=== PATIENT | female | born 1965 | race Caucasian/White ===

== ENCOUNTER 2019-01-17 14:34 | Inpatient (IN) | payer MEDICARE ==
[~2019-01-17] VITALS: Ht 167.6 cm; Wt 68.0 kg
[2019-01-17 15:33] LABS: BASOPHILS ABSOLUTE AUTO 0.04 K/mm3 (0.00-0.23); BASOPHILS PERCENT AUTO 0 % (0-2); EOSINOPHILS ABSOLUTE AUTO 0.02 K/mm3 (0.00-0.68); EOSINOPHILS PERCENT AUTO 0 % (0-6); Hematocrit 48.1 % (33.0-51.0); Hemoglobin 16.2 g/dL (11.5-16.0); IMMATURE GRAN ABSOLUTE AUTO 0.07 K/mm3 (0.00-0.10); IMMATURE GRAN PERCENT AUTO 1 % (0-1); LYMPHOCYTES ABSOLUTE AUTO 2.67 K/mm3 (0.84-5.20); LYMPHOCYTES PERCENT AUTO 19 % (21-46); MONOCYTES ABSOLUTE AUTO 0.61 K/mm3 (0.16-1.47); MONOCYTES PERCENT AUTO 4 % (4-13); Mean Corpuscular HGB 31.4 pg (26.0-34.0); Mean Corpuscular HGB Conc 33.7 g/dL (31.5-36.5); Mean Corpuscular Volume 93 fL (80-100); Mean Platelet Volume 9.4 fL (9.1-12.4); NEUTROPHILS ABSOLUTE AUTO 11.04 K/mm3 (1.96-9.15); NEUTROPHILS PERCENT AUTO 76 % (41-73); Platelet Count 332 K/mm3 (150-400); RDW Coefficient Variation 14.3 % (11.7-14.2); RDW Standard Deviation 49.7 fL (35.1-46.3); Red Blood Cell Count 5.16 M/mm3 (3.80-5.20); White Blood Cell Count 14.45 K/mm3 (4.00-11.30)
[2019-01-17 15:55] LABS: Alanine Aminotransfer (ALT/SGP 26 U/L (12-78); Albumin, Blood 4.3 g/dL (3.4-5.0); Albumin/Globulin Ratio 1.2 (0.8-1.8); Alk Phos 69 U/L (50-136); Anion Gap 8 mmol/L (6-16); Aspartate Aminotrans (AST/SGOT 16 U/L (12-37); Bilirubin, Total 1.4 mg/dL (0.1-1.0); Blood Urea Nitrogen 15 mg/dL (8-24); Bun/Creatinine Ratio 25.9 (12.0-20.0); CO2, Blood 24 mmol/L (21-32); Calcium, Blood 9.3 mg/dL (8.5-10.1); Chloride, Blood 103 mmol/L (98-108); Creatinine, Blood 0.58 mg/dL (0.40-1.00); Ethanol (Alcohol), Blood, Med <3 mg/dL; Globulin, Blood 3.7 g/dL (2.2-4.0); Glomerular Filtration Rate >60 (60-); Glucose, Blood 148 mg/dL (70-99); Potassium, Blood 3.4 mmol/L (3.5-5.5); Sodium, Blood 135 mmol/L (136-145)
[2019-01-17] MEDS ORDERED: Clonazepam0.5 MG PO (19:22)
[2019-01-17] MEDS ORDERED: Prinivil5 MG PO (19:24)
[2019-01-17] MEDS ORDERED: METFORMIN HCL500 MG PO (19:25)
[2019-01-17] MEDS ORDERED: ROSU5 PO (19:25)
[2019-01-17] MEDS ORDERED: Ventolin/Prove6.7 GM INH (19:26)
[2019-01-17] MEDS ORDERED: OMEPRAZOLE20 MG PO (19:44)
[2019-01-17] MEDS ORDERED: SPIRIVA RESPIMAT4 G1 INH (19:59)
[2019-01-17 21:11] LABS: Source, Urine Catheter
[2019-01-17 21:14] LABS: Bilirubin, Urine Neg (Neg); Blood, Urine 2+ (Neg); Color, Urine Yellow (P-Yellow); Glucose Qualitative, Urine Neg (Neg); Ketones, Urine 3+ (Neg); Leukocyte Esterase, Urine 1+ (Neg); Nitrite, Urine Pos (Neg); Protein, Urine 1+ (Neg); Urobilinogen, Urine NORM (Normal)
[2019-01-17 21:21] LABS: Appearance, Urine Hazy (Clear)
[2019-01-17 21:22] LABS: Bacteria Many /hpf; Hyaline Casts 0-2 /lpf (0-2); Red Blood Cells, Urine 0-2 /hpf (0-2); Squamous Epithelial Cells Rare /hpf (Few)
[2019-01-17 21:26] LABS: U Amphetamine Screen Not Detected; U Barbituate Screen Not Detected; U Benzodiazapine Screen Not Detected; U Buprenorphine Screen Not Detected; U Cannabinoids Screen DETECTED; U Cocaine Screen Not Detected; U Methadone Screen Not Detected; U Methamphetamine Screen Not Detected; U Opiates Screen Not Detected; U Oxycodone Screen Not Detected; U Phencyclidine Screen Not Detected; U Propoxyphene Screen Not Detected
[2019-01-18 05:33] LABS: BASOPHILS ABSOLUTE AUTO 0.07 K/mm3 (0.00-0.23); BASOPHILS PERCENT AUTO 1 % (0-2); EOSINOPHILS ABSOLUTE AUTO 0.09 K/mm3 (0.00-0.68); EOSINOPHILS PERCENT AUTO 1 % (0-6); Hematocrit 39.8 % (33.0-51.0); Hemoglobin 13.4 g/dL (11.5-16.0); IMMATURE GRAN ABSOLUTE AUTO 0.04 K/mm3 (0.00-0.10); IMMATURE GRAN PERCENT AUTO 0 % (0-1); LYMPHOCYTES ABSOLUTE AUTO 4.71 K/mm3 (0.84-5.20); LYMPHOCYTES PERCENT AUTO 40 % (21-46); MONOCYTES ABSOLUTE AUTO 0.95 K/mm3 (0.16-1.47); MONOCYTES PERCENT AUTO 8 % (4-13); Mean Corpuscular HGB 31.7 pg (26.0-34.0); Mean Corpuscular HGB Conc 33.7 g/dL (31.5-36.5); Mean Corpuscular Volume 94 fL (80-100); Mean Platelet Volume 9.5 fL (9.1-12.4); NEUTROPHILS ABSOLUTE AUTO 6.01 K/mm3 (1.96-9.15); NEUTROPHILS PERCENT AUTO 51 % (41-73); Platelet Count 255 K/mm3 (150-400); RDW Coefficient Variation 14.3 % (11.7-14.2); RDW Standard Deviation 49.1 fL (35.1-46.3); Red Blood Cell Count 4.23 M/mm3 (3.80-5.20); White Blood Cell Count 11.87 K/mm3 (4.00-11.30)
[2019-01-18 05:49] LABS: International Normalized Ratio 1.07; Prothrombin Time Results 11.3 Sec (9.7-11.5)
[2019-01-18 06:07] LABS: Magnesium, Blood 1.6 mg/dL (1.6-2.4)
[2019-01-18 06:08] LABS: Alanine Aminotransfer (ALT/SGP 20 U/L (12-78); Albumin, Blood 3.5 g/dL (3.4-5.0); Albumin/Globulin Ratio 1.1 (0.8-1.8); Alk Phos 57 U/L (50-136); Anion Gap 7 mmol/L (6-16); Aspartate Aminotrans (AST/SGOT 15 U/L (12-37); Bilirubin, Total 1.4 mg/dL (0.1-1.0); Blood Urea Nitrogen 11 mg/dL (8-24); Bun/Creatinine Ratio 17.9 (12.0-20.0); CO2, Blood 23 mmol/L (21-32); Calcium, Blood 8.2 mg/dL (8.5-10.1); Chloride, Blood 109 mmol/L (98-108); Creatinine, Blood 0.62 mg/dL (0.40-1.00); Globulin, Blood 3.1 g/dL (2.2-4.0); Glomerular Filtration Rate >60 (60-); Glucose, Blood 97 mg/dL (70-99); Sodium, Blood 139 mmol/L (136-145); Total Protein, Blood 6.6 g/dL (6.4-8.2)
--- NOTE | 2019-01-18 15:38 | NUR ---
RECIEVED TELEPHONE REPORT FROM ED RN SIDDHARTHA. WAITITNG FOR PT TO ARRIVE ON MEDICAL FLOOR. PER REPORT PT IS A 1P SBA WITH ANBULATION, VERY CONFUSED HIGH FALL RISK.
--- NOTE | 2019-01-18 18:31 | NUR ---
SHIFT SUMMARY- PT ADMITTED THROUGH THE ED. PT VERBALLY CONFIRMED HER MEDICATIONS HOWEVER [facility] WAS CALLED AND REQUESTED THEY SEND A COPY OF PT ACTIVE MEDICATION LIST. PT FAMILY STATED THE PT MAY HAVE BEEN TAKING HER KLONOPIN TO OFTEN OR AT TOO HIGH OF A DOSE, HER BOTTLE WAS EMPTY WHEN SHE ARRIVED ON MEDICAL FLOOR. ALL MEDICATIONS WERE PLACED IN A BAG IN THE LOCKED DRAWER. PT FAMILY LEFT AND STATED THAT THE PT HAS BEEN UNDER ALOT OF EMOTIONAL STRESS. THEY PLAN TO CHANGE HER ENVIRONMENT AND TAKE HER TO LIVE WITH THEM IN THEIR HOME. PT IS ALERT BUT NOT ORIENTED TO PLACE OR EVENT OR TIME. PT VERY FORGETFUL AND FREQUENTLY REPEATS HERSELF. PT HAS CHAIR AND BED ALARMS SET AND CAMERAS ARE ON FOR PT SAFETY.
--- NOTE | 2019-01-18 20:06 | NUR ---
1925: ASSUMED CARE OF PATIENT. PATIENT ANXIOUS, IMPULSIVE, GETTING UP REPEATEDLY, SETTING OFF HER ALARM. PATIENT IS UNABLE TO SAY WHERE SHE IS LOCATED, SAYS "i DONT KNOW MICHELLE?" WHEN ASKED IF SHE KNOWS WHERE SHE IS. DOESNT KNOW THE DAY, DATE AND BECOMES IRRIATED WHEN ASKED TO ADD NUMBERS. PER DAY NURSE ITZEL IS ONLY A 6 LAST ASSESSMENT. PT DENIES PAIN, SOB, HEADACHE, NAUSSEA. RATES HER ANXIETY AT A 5/10. PT ASKED TO REMAIN EITHR IN BED OR CHAIR AND TO CALL FOR SBA BEFORE GETTING UP DUE TO HER RECENT FALL AT HOME. SHE AGREES TO DO SO. BED LOW AND ALARMED. CALL CAZARES WITHIN REACH.
[2019-01-18 23:53] LABS: U Amphetamine Screen Not Detected; U Barbituate Screen Not Detected; U Benzodiazapine Screen DETECTED; U Buprenorphine Screen Not Detected; U Cannabinoids Screen DETECTED; U Cocaine Screen Not Detected; U Methadone Screen Not Detected; U Methamphetamine Screen Not Detected; U Opiates Screen Not Detected; U Oxycodone Screen Not Detected; U Phencyclidine Screen Not Detected; U Propoxyphene Screen Not Detected
[2019-01-19 05:08] LABS: Hematocrit 41.1 % (33.0-51.0); Hemoglobin 13.7 g/dL (11.5-16.0); Mean Corpuscular HGB 31.1 pg (26.0-34.0); Mean Corpuscular HGB Conc 33.3 g/dL (31.5-36.5); Mean Corpuscular Volume 93 fL (80-100); Mean Platelet Volume 9.6 fL (9.1-12.4); Platelet Count 269 K/mm3 (150-400); RDW Coefficient Variation 14.3 % (11.7-14.2); RDW Standard Deviation 49.1 fL (35.1-46.3); Red Blood Cell Count 4.41 M/mm3 (3.80-5.20); White Blood Cell Count 10.93 K/mm3 (4.00-11.30)
[2019-01-19 05:21] LABS: Anion Gap 6 mmol/L (6-16); Blood Urea Nitrogen 14 mg/dL (8-24); Bun/Creatinine Ratio 19.7 (12.0-20.0); CO2, Blood 27 mmol/L (21-32); Calcium, Blood 8.3 mg/dL (8.5-10.1); Chloride, Blood 106 mmol/L (98-108); Creatinine, Blood 0.71 mg/dL (0.40-1.00); Glomerular Filtration Rate >60 (60-); Glucose, Blood 104 mg/dL (70-99); Potassium, Blood 3.9 mmol/L (3.5-5.5); Sodium, Blood 139 mmol/L (136-145)
[2019-01-19 05:44] LABS: BASOPHILS ABSOLUTE MAN 0.32 K/mm3 (0.00-0.23); BASOPHILS PERCENT MAN 3 % (0-2); EOSINOPHILS PERCENT MAN 1 % (0-6); LYMPHOCYTES % ATYPICAL MANUAL 9 % (0-0); LYMPHOCYTES ABSOLUTE MAN 5.46 K/mm3 (0.84-5.20); LYMPHOCYTES PERCENT MAN 41 % (21-46); MONOCYTES ABSOLUTE MAN 0.87 K/mm3 (0.16-1.47); MONOCYTES PERCENT MAN 8 % (4-13); NEUTROPHILS ABSOLUTE MAN 4.15 K/mm3 (1.96-9.15); SEG NEUTROPHILS PERCENT MAN 38 % (41-73); TOTAL CELLS COUNTED 100
--- NOTE | 2019-01-19 16:02 | NUR ---
PATIENT HAS BEEN TALKATIVE THIS SHIFT. SHE IS STABLE ON HER FEET AND ABLE TO AMBULATE TO THE RESTROOM AND AROUND THE ROOM. SHE IS PLEASANT AND COOPERATIVE WITH CARES . SHE IS ALERT AND ORIENTED X4 AND ABLE TO EXPRESS HER NEEDS. CALL LIGHT WITHIN REACH.
[2019-01-19] MEDS ORDERED: BRINTELLIX10 MG PO (17:17)
--- NOTE | 2019-01-20 04:38 | NUR ---
ALERT AND ORIENTED. CWAS 2 OR LESS THIS SHIFT. NOTED SOMEWHAT ANXIOUS AT SHIFT COMMENCE BUT AFTER NICOTINE PATCH ORDERED AND APPLIED, SEEMED LESS ANXIOUS AND SLEPT MOST OF THE SHIFT UNTIL NOW, UP AND TALKING TO STAFF. VSS. MED TELE SINUS. CALL LIGHT IN REACH. WILL CONTINUE TO MONITOR.
[2019-01-20 04:39] LABS: BASOPHILS ABSOLUTE AUTO 0.08 K/mm3 (0.00-0.23); BASOPHILS PERCENT AUTO 1 % (0-2); EOSINOPHILS ABSOLUTE AUTO 0.23 K/mm3 (0.00-0.68); EOSINOPHILS PERCENT AUTO 2 % (0-6); Hemoglobin 14.2 g/dL (11.5-16.0); IMMATURE GRAN ABSOLUTE AUTO 0.03 K/mm3 (0.00-0.10); IMMATURE GRAN PERCENT AUTO 0 % (0-1); LYMPHOCYTES ABSOLUTE AUTO 4.79 K/mm3 (0.84-5.20); LYMPHOCYTES PERCENT AUTO 42 % (21-46); MONOCYTES ABSOLUTE AUTO 0.96 K/mm3 (0.16-1.47); MONOCYTES PERCENT AUTO 8 % (4-13); Mean Corpuscular HGB 31.6 pg (26.0-34.0); Mean Corpuscular Volume 96 fL (80-100); Mean Platelet Volume 9.6 fL (9.1-12.4); NEUTROPHILS ABSOLUTE AUTO 5.38 K/mm3 (1.96-9.15); NEUTROPHILS PERCENT AUTO 47 % (41-73); Platelet Count 265 K/mm3 (150-400); RDW Coefficient Variation 14.1 % (11.7-14.2); RDW Standard Deviation 49.8 fL (35.1-46.3); White Blood Cell Count 11.47 K/mm3 (4.00-11.30)
[2019-01-20 04:59] LABS: Albumin, Blood 3.6 g/dL (3.4-5.0); Anion Gap 4 mmol/L (6-16); Blood Urea Nitrogen 14 mg/dL (8-24); Bun/Creatinine Ratio 20.2 (12.0-20.0); CO2, Blood 28 mmol/L (21-32); Calcium, Blood 8.5 mg/dL (8.5-10.1); Chloride, Blood 108 mmol/L (98-108); Creatinine, Blood 0.69 mg/dL (0.40-1.00); Glomerular Filtration Rate >60 (60-); Glucose, Blood 93 mg/dL (70-99); Phosphorus, Blood 4.1 mg/dL (2.5-4.9); Potassium, Blood 3.9 mmol/L (3.5-5.5); Sodium, Blood 140 mmol/L (136-145)
[2019-01-20] MEDS ORDERED: Vsl#3 Capsule1 EACH PO (12:08)
[2019-01-20] MEDS ORDERED: Pyridium200 MG PO (12:09)
[2019-01-20] MEDS ORDERED: SERT25 PO (12:10)
[2019-01-20] MEDS ORDERED: Thiamine HCl100 MG PO (12:10)
[2019-01-20] MEDS ORDERED: CEFU500T30 PO (12:11)
[2019-01-20] MEDS ORDERED: THERA1 EACH PO (12:11)
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
== END 2019-01-20 17:05 | disposition home or self-care (01) | DRG 871 ==
LOC: ER 14:34 → EOR 14:35 → ER 14:35 → MEDS 14:35 → EOR 14:35 → MEDS 22:51 → ER 22:51 → EOR 01-18 15:44 → MEDS 01-18 15:44
PROVIDERS: Internal Medicine; Nurse Practitioner Acute Care; Physician Assistant; ADMIT Internal Medicine
DX: A41.51 Sepsis due to Escherichia coli [E. coli] (principal); G92 Toxic encephalopathy; N39.0 Urinary tract infection, site not specified; F10.239 Alcohol dependence with withdrawal, unspecified; E87.6 Hypokalemia; E11.9 Type 2 diabetes mellitus without complications; F41.1 Generalized anxiety disorder; F43.21 Adjustment disorder with depressed mood; I10 Essential (primary) hypertension; J44.9 Chronic obstructive pulmonary disease, unspecified; K21.9 Gastro-esophageal reflux disease without esophagitis; F17.210 Nicotine dependence, cigarettes, uncomplicated; Z88.2 Allergy status to sulfonamides
CPT/HCPCS: 36415; 70450; 71045; 80048; 80053; 80069; 81001; 82947; 83036; 83605; 83735; 84443; 85025; 85610; 87040; 87077; 87086; 87186; 93005; 93010; 94640; 94760; 96361; 96365; 96366; 96367; 96372-59; 96375; 96376; 97110; 97162; 97165; 97530; 99285-25; A9270; G0378; G0480; J0696; J1200; J1630; J1650; J2060; J3411; J3475; J7030; J7042; J7050; Q3014

== ENCOUNTER 2021-06-27 21:00 | Inpatient (IN) | payer MEDICARE ==
[~2021-06-27] VITALS: Ht 165.1 cm; Wt 74.2 kg
[~2021-06-27 21:00] MED LIST: BRINTELLIX10 MG PO; CEFU500T30 PO; Clonazepam0.5 MG PO; METFORMIN HCL500 MG PO; OMEPRAZOLE20 MG PO; Prinivil5 MG PO; Pyridium200 MG PO; ROSU5 PO; SERT25 PO; SPIRIVA RESPIMAT4 G1 INH; THERA1 EACH PO; Thiamine HCl100 MG PO; Ventolin/Prove6.7 GM INH; Vsl#3 Capsule1 EACH PO
[2021-06-27 21:47] LABS: BASOPHILS ABSOLUTE AUTO 0.05 K/mm3 (0.00-0.23); BASOPHILS PERCENT AUTO 0 % (0-2); EOSINOPHILS ABSOLUTE AUTO 0.01 K/mm3 (0.00-0.68); EOSINOPHILS PERCENT AUTO 0 % (0-6); Hematocrit 46.6 % (33.0-51.0); Hemoglobin 16.9 g/dL (11.5-16.0); IMMATURE GRAN ABSOLUTE AUTO 0.21 K/mm3 (0.00-0.10); IMMATURE GRAN PERCENT AUTO 1 % (0-1); LYMPHOCYTES ABSOLUTE AUTO 1.63 K/mm3 (0.84-5.20); LYMPHOCYTES PERCENT AUTO 8 % (21-46); MONOCYTES ABSOLUTE AUTO 1.02 K/mm3 (0.16-1.47); MONOCYTES PERCENT AUTO 5 % (4-13); Mean Corpuscular HGB 31.2 pg (26.0-34.0); Mean Corpuscular HGB Conc 36.3 g/dL (31.5-36.5); Mean Corpuscular Volume 86 fL (80-100); Mean Platelet Volume 9.4 fL (9.1-12.4); NEUTROPHILS PERCENT AUTO 87 % (41-73); Platelet Count 408 K/mm3 (150-400); RDW Coefficient Variation 12.6 % (11.7-14.2); RDW Standard Deviation 39.7 fL (35.1-46.3); Red Blood Cell Count 5.42 M/mm3 (3.80-5.20); White Blood Cell Count 21.52 K/mm3 (4.00-11.30)
[2021-06-27 22:06] LABS: Ethanol (Alcohol), Blood, Med <3 mg/dL
[2021-06-27 22:07] LABS: U Amphetamine Screen Not Detected; U Barbituate Screen Not Detected; U Benzodiazapine Screen Not Detected; U Buprenorphine Screen Not Detected; U Cannabinoids Screen Not Detected; U Cocaine Screen Not Detected; U Methadone Screen Not Detected; U Methamphetamine Screen Not Detected; U Opiates Screen Not Detected; U Oxycodone Screen Not Detected; U Phencyclidine Screen Not Detected; U Propoxyphene Screen Not Detected
[2021-06-27 22:10] LABS: Alanine Aminotransfer (ALT/SGP 49 U/L (12-78); Albumin, Blood 4.6 g/dL (3.4-5.0); Albumin/Globulin Ratio 1.2 (0.8-1.8); Alk Phos 64 U/L (50-136); Anion Gap 16 mmol/L (6-16); Aspartate Aminotrans (AST/SGOT 160 U/L (12-37); Bilirubin, Total 1.5 mg/dL (0.1-1.0); Blood Urea Nitrogen 9 mg/dL (8-24); Bun/Creatinine Ratio 16.5 (12.0-20.0); CO2, Blood 20 mmol/L (21-32); Calcium, Blood 9.8 mg/dL (8.5-10.1); Chloride, Blood 79 mmol/L (98-108); Creatinine, Blood 0.54 mg/dL (0.40-1.00); Globulin, Blood 3.9 g/dL (2.2-4.0); Glomerular Filtration Rate >60 (60-); Glucose, Blood 151 mg/dL (70-99); Sodium, Blood 115 mmol/L (136-145); Total Protein, Blood 8.5 g/dL (6.4-8.2)
[2021-06-27 22:15] LABS: Source, Urine Foley catheter
[2021-06-27 22:20] LABS: Bilirubin, Urine Neg (Neg); Blood, Urine 3+ (Neg); Glucose Qualitative, Urine Neg (Neg); Ketones, Urine 3+ (Neg); Leukocyte Esterase, Urine Neg (Neg); Nitrite, Urine Neg (Neg); Protein, Urine 2+ (Neg); Urobilinogen, Urine NORM (Normal)
[2021-06-27 22:30] LABS: International Normalized Ratio 1.09; Prothrombin Time Results 11.4 Sec (9.7-11.5)
[2021-06-27 22:30] LABS: Appearance, Urine Clear (Clear); Color, Urine Yellow (P-Yellow)
[2021-06-27 22:31] LABS: Amorphous Light (0-Heavy); Bacteria Few /hpf; Squamous Epithelial Cells Not Seen /hpf (Few); White Blood Cells, Urine Not Seen /hpf (0-5)
[2021-06-28 03:23] LABS: BASOPHILS ABSOLUTE AUTO 0.02 K/mm3 (0.00-0.23); BASOPHILS PERCENT AUTO 0 % (0-2); EOSINOPHILS ABSOLUTE AUTO 0.01 K/mm3 (0.00-0.68); EOSINOPHILS PERCENT AUTO 0 % (0-6); Hematocrit 37.6 % (33.0-51.0); Hemoglobin 13.6 g/dL (11.5-16.0); IMMATURE GRAN ABSOLUTE AUTO 0.05 K/mm3 (0.00-0.10); IMMATURE GRAN PERCENT AUTO 0 % (0-1); LYMPHOCYTES ABSOLUTE AUTO 3.31 K/mm3 (0.84-5.20); LYMPHOCYTES PERCENT AUTO 25 % (21-46); MONOCYTES ABSOLUTE AUTO 1.33 K/mm3 (0.16-1.47); MONOCYTES PERCENT AUTO 10 % (4-13); Mean Corpuscular HGB 31.1 pg (26.0-34.0); Mean Corpuscular HGB Conc 36.2 g/dL (31.5-36.5); Mean Corpuscular Volume 86 fL (80-100); Mean Platelet Volume 9.2 fL (9.1-12.4); NEUTROPHILS ABSOLUTE AUTO 8.64 K/mm3 (1.96-9.15); NEUTROPHILS PERCENT AUTO 65 % (41-73); Platelet Count 254 K/mm3 (150-400); RDW Coefficient Variation 12.7 % (11.7-14.2); RDW Standard Deviation 39.9 fL (35.1-46.3); Red Blood Cell Count 4.37 M/mm3 (3.80-5.20); White Blood Cell Count 13.36 K/mm3 (4.00-11.30)
[2021-06-28 03:39] LABS: Blood Urea Nitrogen 7 mg/dL (8-24); Bun/Creatinine Ratio 12.4 (12.0-20.0); CO2, Blood 23 mmol/L (21-32); Chloride, Blood 95 mmol/L (98-108); Creatinine, Blood 0.57 mg/dL (0.40-1.00); Glomerular Filtration Rate >60 (60-); Glucose, Blood 83 mg/dL (70-99); Potassium, Blood 3.4 mmol/L (3.5-5.5)
[2021-06-28 03:44] LABS: Anion Gap 8 mmol/L (6-16); Calcium, Blood 7.5 mg/dL (8.5-10.1); Sodium, Blood 126 mmol/L (136-145)
--- NOTE | 2021-06-28 06:58 | NUR ---
ASSUMPTION OF CARE/SHIFT SUMMARY PT ARRIVED TO ICU FROM ED AT 0256 FOR ACUTE HEPATIC ENCEPHALOPATHY, HYPONATREMIA, AND SEPTIC SHOCK. SHE IS ALERT AND ORIENTED X2, CONFUSED AND REPEATS QUESTIONS/ANSWERS OFTEN, HOWEVER SHE IS COOPERATIVE AND FOLLOWS COMMANDS. HAS TO BE REDIRECTED OFTEN. TMAX OF 101.4. PUPILS ARE PERRL, 6MM THAT REACT TO 4MM. TOX SCREEN NEGATIVE. LUNGS ARE CLEAR, ARRIVED ON ROOM AIR, BUT DESATS INTO UPPER 80'S WHEN SLEEPING, 2L NC PLACED, SPO2 >92%. HR IS SR IN 70-90'S, BP SOFT. 2+ NON-PITTING EDEMA IN BLE, LEFT WORSE THAN RIGHT. SHE RECEIVED 1L NS, AND FINISHING 1L LR BOLUS. 3% SALINE STARTED IN ED, INFUSING AT 35ML/HR. SHE IS UNABLE TO PROVIDE HISTORY ON WHEN HER LAST BOWEL MOVEMENT WAS, BOWEL TONES HYPOACTIVE, BUT PRESENT X4. NO NAUSEA OR VOMITING. TEMP PADRON PRESENT, PATENT AND DRAINING CLEAR, YELLOW URINE. 1250ML OUT THIS SHIFT. SKIN IS OVERALL C/D/I WITH SCATTERED BRUISING ON BUE, HANDS APPEAR DIRTY. 20G IV TO RIGHT AC, 20G IV TO LEFT AC, DR. MOY AWARE 3% SALINE RUNNING PERIPHERALLY. 0355: CALL TO DR. MOY RE: SODIUM LAB OF 126. ORDERS TO D/C 3% SALINE. ALSO, DISCUSSED SOFT BLOOD PRESSURES AND 500ML LR BOLUS STARTED. 0530: CALL TO DR. MOY RE: HYPOTENSION WITH MAP <65. ORDERS TO START LOW DOSE LEVOPHED, OK TO RUN PERIPHERALLY. STARTED AT 2MCG/MIN TO KEEP MAP >65. POWERGLIDE TO RIGHT UPPER ARM PLACED FOR POTASSIUM REPLACEMENT INFUSION. 20MEQ ORDERED. PT SLEEPING WELL, ORDERS REVIEWED, AND WILL REPORT OFF TO ONCOMING SHIFT.
--- NOTE | 2021-06-28 07:34 | NUR ---
PT'S DAUGHTER, CARMEN, CALLED AROUNG 0700. ATTEMPTED TO CALL BACK, BUT NO ANSWER. WILL RELAY TO ONCOMING SHIFT.
[2021-06-28 09:24] LABS: Anion Gap 7 mmol/L (6-16); Blood Urea Nitrogen 5 mg/dL (8-24); Bun/Creatinine Ratio 8.5 (12.0-20.0); CO2, Blood 24 mmol/L (21-32); Calcium, Blood 7.7 mg/dL (8.5-10.1); Chloride, Blood 99 mmol/L (98-108); Creatinine, Blood 0.59 mg/dL (0.40-1.00); Glomerular Filtration Rate >60 (60-); Glucose, Blood 93 mg/dL (70-99); Potassium, Blood 3.4 mmol/L (3.5-5.5); Sodium, Blood 130 mmol/L (136-145)
[2021-06-28] MEDS ORDERED: METF500C PO (10:21)
[2021-06-28 11:17] LABS: BASOPHILS ABSOLUTE AUTO 0.01 K/mm3 (0.00-0.23); BASOPHILS PERCENT AUTO 0 % (0-2); EOSINOPHILS ABSOLUTE AUTO 0.01 K/mm3 (0.00-0.68); EOSINOPHILS PERCENT AUTO 0 % (0-6); Hematocrit 36.6 % (33.0-51.0); Hemoglobin 13.1 g/dL (11.5-16.0); IMMATURE GRAN ABSOLUTE AUTO 0.04 K/mm3 (0.00-0.10); IMMATURE GRAN PERCENT AUTO 0 % (0-1); LYMPHOCYTES ABSOLUTE AUTO 1.95 K/mm3 (0.84-5.20); LYMPHOCYTES PERCENT AUTO 19 % (21-46); MONOCYTES ABSOLUTE AUTO 1.17 K/mm3 (0.16-1.47); MONOCYTES PERCENT AUTO 11 % (4-13); Mean Corpuscular HGB Conc 35.8 g/dL (31.5-36.5); Mean Corpuscular Volume 87 fL (80-100); Mean Platelet Volume 9.4 fL (9.1-12.4); NEUTROPHILS ABSOLUTE AUTO 7.06 K/mm3 (1.96-9.15); NEUTROPHILS PERCENT AUTO 69 % (41-73); Platelet Count 273 K/mm3 (150-400); RDW Standard Deviation 41.1 fL (35.1-46.3); Red Blood Cell Count 4.22 M/mm3 (3.80-5.20); White Blood Cell Count 10.24 K/mm3 (4.00-11.30)
[2021-06-28 11:25] LABS: Anion Gap 7 mmol/L (6-16); Blood Urea Nitrogen 4 mg/dL (8-24); Bun/Creatinine Ratio 6.4 (12.0-20.0); CO2, Blood 25 mmol/L (21-32); Calcium, Blood 7.6 mg/dL (8.5-10.1); Chloride, Blood 100 mmol/L (98-108); Creatinine, Blood 0.62 mg/dL (0.40-1.00); Glomerular Filtration Rate >60 (60-); Glucose, Blood 113 mg/dL (70-99); Potassium, Blood 3.3 mmol/L (3.5-5.5); Sodium, Blood 132 mmol/L (136-145)
--- NOTE | 2021-06-28 12:15 | NUR ---
REASSESSMENT PT SPENT THE MORNING RESTING IN BED. SHE IS ALERT, ORIENTED TO PERSON AND PLACE. SHE FORGETS THE MAJORITY WHAT SHE IS TOLD WITHIN 10 MINUTES, BUT IS SLOWLY STARTING TO HOLD ONTO PIECES OF INFORMATION FOR LONGER. SHE DOES NOT REMEMBER WHAT BROUGHT HER TO THE HOSPITAL. THE LAST THING SHE REMEMBERS IS GOING TO GET [employer]. SHE IS NOT SURE WHO THE PERSON IN THE CAR WITH HER WAS. HER PUPILS REMAIN ABOUT 6MM AND SLUGGISH. LUNGS CLEAR, MOIST COUGH, NONPRODUCTIVE SO FAR. SR. STILL REQUIRING PRESSORS, BUT BP DOING BETTER SO WILL START TRYING TO WEAN DOWN. FEVER DOWN TO 99.9F. PT IS EATING WELL. DIET STARTED PER DR. VILLAGOMEZ WITH FREE WATER RESTRICTION. PT UNSURE OF HER MEDICATIONS AND EVEN UNSURE OF HER PHARMACY, ONLY KNOWS IT IS IN [place] [employer]. CALLED [facility] TO GATHER MEDICATION INFORMATION. SPOKE WITH PT'S DAUGHTER EDITH AND PROVIDED UPDATE THIS MORNING.
[2021-06-28 13:19] LABS: Anion Gap 7 mmol/L (6-16); Blood Urea Nitrogen 6 mg/dL (8-24); Bun/Creatinine Ratio 9.2 (12.0-20.0); CO2, Blood 25 mmol/L (21-32); Calcium, Blood 7.8 mg/dL (8.5-10.1); Chloride, Blood 101 mmol/L (98-108); Creatinine, Blood 0.65 mg/dL (0.40-1.00); Glomerular Filtration Rate >60 (60-); Glucose, Blood 117 mg/dL (70-99); Potassium, Blood 3.3 mmol/L (3.5-5.5); Sodium, Blood 133 mmol/L (136-145)
--- NOTE | 2021-06-28 16:53 | NUR ---
SHIFT SUMMARY PT HAS CONTINUED TO REST IN BED THROUGHOUT THE DAY BUT IS MOVING HERSELF AROUND IN BED. SHE REMAINS ALERT, ORIENTED TO PERSON AND PLACE. SHE IS REMEMBERING MORE AND ABLE TO RETAIN INFORMATION BETTER, BUT IS STILL FOGGY. LUNGS ARE CLEAR, MOIST COUGH THOUGH. SR WHILE AWAKE, SINUS QUYEN IN THE UPPER 50S WHILE SHE WAS NAPPING THIS AFTERNOON. LEVOPHED REMAINS ON. ATTEMPTED TO TITRATE IT OFF, BUT PT'S BP WOULDN'T HOLD SO IT REMAINS AT 4 MCG/MIN. OVER 2L OUT FROM PADRON. EATING WELL. PT'S DAUGHTER UPDATED THIS AFTERNOON. CONTINUING TO MONITOR.
[2021-06-28 17:35] LABS: Anion Gap 6 mmol/L (6-16); Blood Urea Nitrogen 11 mg/dL (8-24); Bun/Creatinine Ratio 14.8 (12.0-20.0); CO2, Blood 24 mmol/L (21-32); Calcium, Blood 7.8 mg/dL (8.5-10.1); Chloride, Blood 105 mmol/L (98-108); Creatinine, Blood 0.74 mg/dL (0.40-1.00); Glomerular Filtration Rate >60 (60-); Glucose, Blood 111 mg/dL (70-99); Potassium, Blood 3.2 mmol/L (3.5-5.5); Sodium, Blood 135 mmol/L (136-145)
--- NOTE | 2021-06-28 17:50 | NUR ---
PT REQUESTING TO GO OUT TO SMOKE. INFORMED HER OF NO SMOKING POLICY AND OFFERED NICOTINE PATCH, WHICH SHE SAID SHE WOULD TAKE. DR. VILLAGOMEZ NOTIFIED AND ORDER RECEIVED FOR NICOTINE PATCH. ALSO REPORTED PT'S K LEVEL AND ORDER RECEIVED FOR REPLACEMENT.
--- NOTE | 2021-06-28 20:14 | NUR ---
ASSUMPTION OF CARE RECEIVED REPORT AT 1900 FROM ADRIAN LUNDBERG. PT IS A/O X2, ABLE TO FOLLOW COMMANDS AND EXPRESSES NEEDS APPROPRIATELY. DOES NOT REMEMBER WHY SHE IS IN THE HOSPITAL, OR THE EVENTS LEADING TO HOSPITAL STAY, SHE ONLY REMEMBERS SHE WAS GOING TO [employer]. PUPILS REMAIN LARGE, BUT EQUAL AND BRISK. ON ROOM AIR, SPO2 >96%. HR NORMAL SINUS TO SINUS QUYEN, RATE IN 50'S. BP IS HYPOTENSIVE, LEVOPHED ON AT 4MCG/MIN, MAINTAINING MAP >65. EDEMA PRESENT IN BLE, L>R, IMPROVED FROM ADMISSION. PT STATES SWELLING NORMAL FOR HER, LEFT WORSE THAN RIGHT. SHE REMAINS ON 1000ML FREE WATER RESTRICTION. LOW GRADE FEVER OF 99.5. SKIN OVERALL C/D/I, SCATTERED BRUISES DOCUMENTED. 20G L AC, INFUSING WITH LEVOPHED, NO INFILTRATION ASSESSED. RIGHT PG INFUSING WITH TKO. 20 IN RIGHT AC DISCONTINUED D/T LEAKING. PT COMPLETED ORAL CARE THIS EVENING. ORDERS REVIEWED, WILL TREAT PRESCRIBED.
--- NOTE | 2021-06-28 23:48 | NUR ---
REASSESSMENT PT SLEEPING WELL AT THIS TIME. NO ACUTE CHANGES. CONTINUES TO BE A/O X2. CONTINUES TO ASK WHAT EVENTS LEAD TO HER HOSPITALIZATION AND DOES NOT RECALL THEM WHEN REMINDED. 2L NC REMAINS ON, SPO2 >96%. HR IS FIRST DEGREE AV BLOCK, RATE IN UPPER 50'S. BP STABLE, MAP 65 OR GREATER WITH LEVOPHED AT 4MCG/MIN.
--- NOTE | 2021-06-29 05:53 | NUR ---
PT SLEPT WELL MOST OF SHIFT. SHE STILL DOES NOT REMEMBER EVENTS LEADING UP TO HOSPITALIZATION AND NOW BECOMES TEARFUL AND ANXIOUS WHEN WE DISCUSS WHAT HAPPENED. SHE IS WORRIED ABOUT WHERE SHE WILL GO WHEN SHE IS DISCHARGED. SHE IS AFEBRILE AT 98.7. HR CONTINUES SINUS RHYTHM WITH FIRST DEGREE AV BLOCK, RATE 50-70'S. BP STABLE WITH LEVOPHED TITRATED OFF AT 0235. 2L NC REMAINS ON, SPO2 >96%, LUNGS CLEAR. TEMP PADRON REMAINS PATENT, 1100ML CLEAR, YELLOW URINE OUT. PG TO GINGER REMAINS WITH TKO, 20G LAC IS SL. NO LABS DRAWN THIS AM. WILL REPORT TO ONCOMING SHIFT WHEN AVAILABLE.
--- NOTE | 2021-06-29 14:01 | NUR ---
TO 211 VIA WHEELCHAIR, STOOD TO TRANSFER TO BED. PT KNOWS THAT SHE IS IN HOSPITAL AND NAME AND BIRTHDATE, DOES NOT RECALL WHY SHE IS IN HOSPITAL. PT INSTRUCTED ON USE OF CALL LIGHT. BED ALARM IN PLACE
--- NOTE | 2021-06-29 15:44 | NUR ---
TRANSFER TO SURGICAL PATIENT ARRIVED TO UNIT IN WHEELCHAIR TRANSFER FROM ICU. ALERT, ORIENTED TO SELF AND PLACE. HAS DIFFICULTY REMEMBERING EVENTS LEADING TO HOSPITAL. VSS. RESTING IN BED AT THIS TIME.
--- NOTE | 2021-06-29 19:04 | NUR ---
SEIZURE ACTIVITY TROLLEY CAR OPERATOR NOTIFIED THIS RN OF CHANGE TO PATIENT'S MENTATION. PATIENT NOTED TO BE STARING AT THE WALL, DID NOT RESPOND TO VERBAL COMMANDS, EYES OPEN, PUPILS EQUAL AND RESPONSIVE TO LIGHT. TWITCHING TO FACE, EYE BROWS, AND NECK WHEN SHE TURNS HER HEAD. GAG AND VOMIT REFLEX NOTED, NO EMESIS. VSS. CALLED DR VILLAGOMEZ WHO ORDERED 1000 MG IV NOW AND 500 MG IV BID. ADMINISTERED 1 MG ATIVAN IV AND GAVE REPORT TO ASSISTANT PROFESSOR OF BUSINESS RN. IV KEPPRA STARTED AT THIS TIME.
--- NOTE | 2021-06-29 19:31 | NUR ---
SHIFT SUMMARY TRANSFER TO UNIT FROM ICU IN AFTERNOON. BLANK AFFECT BUT RESPONDED TO QUESTIONS AND DIRECTIONS. ONE INCONTINENT BM. SBA TO BATHROOM. SEIZURE ACTIVITY AT END OF SHIFT. DR NOTIFIED. IV ATIVAN AND KEPPRA GIVEN. VSS. REPORT GIVEN TO JOURNEYMAN MACHINIST RN.
[2021-06-29 20:57] LABS: BASOPHILS ABSOLUTE AUTO 0.04 K/mm3 (0.00-0.23); BASOPHILS PERCENT AUTO 0 % (0-2); EOSINOPHILS ABSOLUTE AUTO 0.04 K/mm3 (0.00-0.68); EOSINOPHILS PERCENT AUTO 0 % (0-6); Hematocrit 38.1 % (33.0-51.0); Hemoglobin 13.1 g/dL (11.5-16.0); IMMATURE GRAN ABSOLUTE AUTO 0.02 K/mm3 (0.00-0.10); IMMATURE GRAN PERCENT AUTO 0 % (0-1); LYMPHOCYTES ABSOLUTE AUTO 3.47 K/mm3 (0.84-5.20); LYMPHOCYTES PERCENT AUTO 38 % (21-46); MONOCYTES ABSOLUTE AUTO 0.94 K/mm3 (0.16-1.47); MONOCYTES PERCENT AUTO 10 % (4-13); Mean Corpuscular HGB 30.8 pg (26.0-34.0); Mean Corpuscular HGB Conc 34.4 g/dL (31.5-36.5); Mean Corpuscular Volume 90 fL (80-100); Mean Platelet Volume 9.1 fL (9.1-12.4); NEUTROPHILS ABSOLUTE AUTO 4.64 K/mm3 (1.96-9.15); NEUTROPHILS PERCENT AUTO 51 % (41-73); Platelet Count 217 K/mm3 (150-400); RDW Coefficient Variation 13.5 % (11.7-14.2); RDW Standard Deviation 45.2 fL (35.1-46.3); Red Blood Cell Count 4.25 M/mm3 (3.80-5.20); White Blood Cell Count 9.15 K/mm3 (4.00-11.30)
[2021-06-29 21:14] LABS: Anion Gap 9 mmol/L (6-16); Blood Urea Nitrogen 6 mg/dL (8-24); Bun/Creatinine Ratio 11.5 (12.0-20.0); CO2, Blood 26 mmol/L (21-32); Chloride, Blood 104 mmol/L (98-108); Creatinine, Blood 0.52 mg/dL (0.40-1.00); Glomerular Filtration Rate >60 (60-); Glucose, Blood 99 mg/dL (70-99); Magnesium, Blood 2.1 mg/dL (1.6-2.4); Potassium, Blood 3.4 mmol/L (3.5-5.5); Sodium, Blood 139 mmol/L (136-145)
--- NOTE | 2021-06-29 22:09 | NUR ---
AT APPROX, 2030 RAP[facility] RESPONSE WAS CALLED ON PATIENT. PT HAS BEEN NONRESPONSIVE SINCE THE START OF CARE FROM THIS NURSE AT 1900. PT DISPLAYING SEZIURE LIKE ACTIVITY. 1MG OF ATIVAN GIVEN BY PREVIOUS SHIFT, AND 1000MG OF KEPPRA INFUSED OVER 15 MINUTES, THESE MEDS WERE GIVEN AT 1850 (ATVAN) AND 191 (KEPPRA). PT SHOWED NO IMPROVEMENT. CALLED AT 193 AND MESSAGE WAS LEFT, AGAIN CALLED AR 1958, MD STATED THAT THEY WOULD BE UP TO ASSESS THE PATIENT. PT SHOWED NO IMPORVEMENT AND WAS STILL DISPLAYING SEIZURE LIKE ACTIVITY. RAPID RESPONSE WAS CALLED AT APPROX 2030.
[2021-06-29 23:42] LABS: Source, Urine Clean Catch
[2021-06-29 23:45] LABS: Bilirubin, Urine Neg (Neg); Blood, Urine 1+ (Neg); Glucose Qualitative, Urine Neg (Neg); Ketones, Urine 2+ (Neg); Leukocyte Esterase, Urine 1+ (Neg); Nitrite, Urine Neg (Neg); Protein, Urine Neg (Neg); Urobilinogen, Urine 1+ (Normal); pH, Urine 6.5 (5.0-8.0)
[2021-06-29 23:54] LABS: Appearance, Urine Clear (Clear); Color, Urine Yellow (P-Yellow)
[2021-06-29 23:55] LABS: Bacteria Rare /hpf; Red Blood Cells, Urine 0-2 /hpf (0-2); Squamous Epithelial Cells Rare /hpf (Few); Yeast/Fungi Urine Few /hpf
[2021-06-29 23:57] LABS: U Amphetamine Screen Not Detected; U Barbituate Screen Not Detected; U Benzodiazapine Screen DETECTED; U Buprenorphine Screen Not Detected; U Cannabinoids Screen Not Detected; U Cocaine Screen Not Detected; U Methadone Screen Not Detected; U Methamphetamine Screen Not Detected; U Opiates Screen Not Detected; U Oxycodone Screen Not Detected; U Phencyclidine Screen Not Detected; U Propoxyphene Screen Not Detected
--- NOTE | 2021-06-30 02:53 | NUR ---
PT CONTINUING TO EXIT BED. DOESN'T FEEL LIKE THEY NEED TO BE HERE. WHEN ASKED WHERE HERE WAS PT STATES THAT THEY DON'T KNOW THEY JUST DONT NEED TO BE HERE. ORDER FOR RANJANA CROOKS OBTAINED FOR PT SAFETY.
[2021-06-30 04:21] LABS: BASOPHILS ABSOLUTE AUTO 0.05 K/mm3 (0.00-0.23); BASOPHILS PERCENT AUTO 1 % (0-2); EOSINOPHILS ABSOLUTE AUTO 0.06 K/mm3 (0.00-0.68); EOSINOPHILS PERCENT AUTO 1 % (0-6); Hematocrit 37.8 % (33.0-51.0); Hemoglobin 13.1 g/dL (11.5-16.0); IMMATURE GRAN ABSOLUTE AUTO 0.02 K/mm3 (0.00-0.10); IMMATURE GRAN PERCENT AUTO 0 % (0-1); LYMPHOCYTES ABSOLUTE AUTO 2.73 K/mm3 (0.84-5.20); LYMPHOCYTES PERCENT AUTO 33 % (21-46); MONOCYTES ABSOLUTE AUTO 0.77 K/mm3 (0.16-1.47); MONOCYTES PERCENT AUTO 9 % (4-13); Mean Corpuscular HGB 31.1 pg (26.0-34.0); Mean Corpuscular HGB Conc 34.7 g/dL (31.5-36.5); Mean Corpuscular Volume 90 fL (80-100); Mean Platelet Volume 9.1 fL (9.1-12.4); NEUTROPHILS ABSOLUTE AUTO 4.74 K/mm3 (1.96-9.15); NEUTROPHILS PERCENT AUTO 57 % (41-73); Platelet Count 200 K/mm3 (150-400); RDW Coefficient Variation 13.4 % (11.7-14.2); RDW Standard Deviation 44.5 fL (35.1-46.3); Red Blood Cell Count 4.21 M/mm3 (3.80-5.20); White Blood Cell Count 8.37 K/mm3 (4.00-11.30)
[2021-06-30 04:37] LABS: Anion Gap 8 mmol/L (6-16); Blood Urea Nitrogen 5 mg/dL (8-24); Bun/Creatinine Ratio 9.3 (12.0-20.0); CO2, Blood 27 mmol/L (21-32); Chloride, Blood 103 mmol/L (98-108); Creatinine, Blood 0.54 mg/dL (0.40-1.00); Glomerular Filtration Rate >60 (60-); Glucose, Blood 96 mg/dL (70-99); Potassium, Blood 3.3 mmol/L (3.5-5.5); Sodium, Blood 138 mmol/L (136-145)
--- NOTE | 2021-06-30 05:32 | NUR ---
PT IS CONFUSED AND DISORIENTED TO SITUATION, IS ABLE TO STATE THE CORRECT TIME AND DATE. PT APPEARED TO BE HAVING SEIZURE AT THE START OF THE SHIFT, AT AROUND MIDNIGHT PT BECAME MORE ALERT BUT WASN'T FOLLOWING COMMANDS. PT CONTINUED TO JUMP OOB AND WAS CAUGHT WONDERING THE HALLS. ORDER FOR RANJANA VEST OBTAINED. UNABLE TO REORIENT PT. PT HAS NOT SLEPT THIS SHIFT, HAS BEEN GIVEN A TOTAL OF 4MG OF ATIVAN ALONG WITH 1000MG OF KEPPRA. PT HAS BECOME INCREASINGLY MORE ALERT BUT REMAINS CONFUSED. WILL CONTINUE TO MONITOR THIS PATIENT.
--- NOTE | 2021-06-30 11:07 | NUR ---
PATIENT VERY QUIET AT TIMES, ANSWERS SOME QUESTIONS CORRECTLY, HOWEVER IS VERY DISORIENTED TO WHERE SHE IS AT. REPEATS THAT SHE JUST CANNOT BELIEVE SHE IS AT [facility]. UNABLE TO SAY WAY AND VOICES THAT SHE JUST KNOW IT IS NOT [facility]. ON-GOING LOOKING OVER RIGHT SHOULDER IF SOMEONE IS BEHIND HER, CANNOT STATES WHY SHE IS DOING THAT. FOR THE MOST PART IS VERY QUIET , PLEASANT. APPETITE IS POOR. LEFT AN ENSURE AND OJ IN FRONT OF HER, REFUSED BUT WHEN ALONE SHE DID DRINK IT. HAS NO VOID YET, SITTING UP AT SIDE OF BED, REFUSES TO LAY DOWN. BOTH IV SITES THIS MORNING ARE NOT PATENT, NEW IV SITE TO R AC. AT THIS TIME THIAMINE IS INFUSING. BED ALARM TO ALERT STAFF OF PT. RISING.
--- NOTE | 2021-06-30 13:09 | NUR ---
PT. PLEASANTLY CONFUSED AND EXIT SEEKING, WANDERS. IS REDIRECTED BUT THEN GETS UP AND WALKS ABOUT WITH NO GOAL TO WHERE SHE IS GOING. BED AND CHAIR ALARMS EFFECTIVE TO ALERT STAFF, AT THIS TIME PATIENT IS IN CHAIR AT STAFF NURSE STATION.
--- NOTE | 2021-07-01 04:25 | NUR ---
PT IS CONFUSED, 1PA TO BR AND REMAINS IN RANJANA VEST FOR PT SAFETY. NO SEIZURE ACTIVITY NOTED THIS SHIFT. PT ORIENTED TO SELF AND TIME ONLY, REMAINS CONFUSED TO SITUATION AND PLACE. PT IS A POOR AND UNRELIABLE HISTORIAN AND IS UNABLE TO COMMUNICATE NEEDS. PT NEEDS REDIRECTION, WILL CALL MULTIPLE TIMES ASKING TO TALK TO SOMEONE, BUT IS UNABLE TO COMMUNICATE WITH STAFF APPROPRIATELY. PT SLEEPS OFF AND ON THIS SHIFT.
--- NOTE | 2021-07-01 09:43 | NUR ---
PATIENT SITTING UP IN BED EARLIER W RANJANA VEST ON, SECURED. TAKEN TO BSC PATIENT INCONTINENT OF STOOL, DID VOID 300CC DARSHAN URINE. WHILE CLEANING PT. UP PATIENT ATTEMPT EXITING MULTIPLE TIMES . RANJANA REAPPLIED AFTER TOILETING AND PATIENT MANAGED TO QUICKLY ROLL, TURN, UNTIE AND RUN OUT OF DOOR. 1;1 AMBULATE WITH PATIENT IN FELIX , PATIENT URGENTLY WALKING UP AND DOWN FELIX. RECIEVED NEW ORDER FOR ATIVAN, ABLE TO GET PATIENT TO SIT IN LOUNGE CHAIR WITH GENTLE ASSIST, RANJANA REAPPLIED AND PATIENT SITTING WITH NURSES AT MAIN NURSE STATION. NON AGITATED AT THIS TIME, HOWEVER WHEN ATTEMPT TO HANG IV THIAMINE PATIENT YELLS OUT "NO!" AND GRABBING AT IV. IV SECURED WITH COBAN, THIAMINE DOSE MISSED.
[2021-07-01 10:27] LABS: Anion Gap 7 mmol/L (6-16); Blood Urea Nitrogen 12 mg/dL (8-24); Bun/Creatinine Ratio 22.6 (12.0-20.0); CO2, Blood 24 mmol/L (21-32); Calcium, Blood 8.7 mg/dL (8.5-10.1); Chloride, Blood 105 mmol/L (98-108); Creatinine, Blood 0.53 mg/dL (0.40-1.00); Glomerular Filtration Rate >60 (60-); Glucose, Blood 137 mg/dL (70-99); Potassium, Blood 3.5 mmol/L (3.5-5.5); Sodium, Blood 136 mmol/L (136-145)
--- NOTE | 2021-07-01 14:43 | NUR ---
PATIENT HAS BEEN UP IN NURSE STATION IN CHAIR, DOES NOT EXIT SEEK WHILE SITTING AT NURSE STATION , CONT. WITH RANJANA PATIENT IS VERY IMPUSLSIVE AND MOVES VERY FAST , UNSTEADY AND DETERMINED. HAS REFUSED HER IV THIAMINE TWICE TODAY AND YELLS NO NO AT THE IV MACHINE AND NURSE. HAS BEEN FIXATED ON COUNTING TODAY AND TAPPING OBJECTS OVER AND OVER IF SHE IS DRUMMING. DID EAT 50% OF HER LUNCH, BM THIS A.M. AND HAS VOIDED.
--- NOTE | 2021-07-01 15:33 | NUR ---
PT TRANSFERED TO ROOM 344, REPORT GIVEN TO DERREK. ALL BELONGINGS SENT WITH PATIENT. PATIENT HAS SAT AT THE NURSES STATION DURING THE ENTIRE SHIFT. SHE HAS REMAINED EMOTIONALLY LABILE, SHE CONTINUES TO FREQUENTLY REPEAT PHRASES AND CRY AT TIMES. SHE HAS BEEN HITTING HER TABLE OR CHAIR CONSISTENTLY WHILE SITTING AT NURSES STATION AND OCCASIONALLY SHE WILL STOP AND STARE STRAIGHT AHEAD BEFORE TURNING HER HEAD TO THE RIGHT. AFTER APPROX 15-30 SECONDS SHE WILL LOOK AROUND HER AND GO BACK TO BANGING ON THE TABLE. IV REMAINS PATENT.
--- NOTE | 2021-07-01 17:24 | NUR ---
SHIFT SUMMARY PATIENT TRANSFERRED TO ROOM 344 FROM SURGICAL FLOOR. PATIENT SETTLED INTO ROOM. RANJANA VEST DISCONTINUED. PATIENT SITTING IN RECLINER. PATIENT ORIENTED TO SELF. PATIENT CONSTANTLY TAPS ON OBJECTS WITH ANYTHING SHE CAN. PATIENT REARRANGES OBJECTS ON TABLE CONSTANTLY. PATIENT CONTINUOUSLY COUNTS. PATIENT HAD ONE EVENT WHERE SHE WAS TEARFUL, PROVIDED BACK RUB AND HELD HAND. PATIENT CALMED BACK DOWN. PATIENT IS INDEPENDENT IN ROOM. PATIENT IS VERY STEADY ON FEET. PATIENT FOLLOWS SOME DIRECTIONS. PATIENT IS EATING AND DRINKING WELL. PATIENT IS PLEASANT. PATIENT DID NOT WANT NICOTINE PATCH PLACED, SHE STATED "NO" WHEN I SHOWED HER AND TRIED TO THROW PATCH AWAY.
--- NOTE | 2021-07-01 18:28 | NUR ---
UPDATE PATIENT BECAME VERY ANXIOUS THIS EVENING. PATIENT NOT FOLLOWING DIRECTIONS. PATIENT HISTERICALLY CRYING. PATIENT UNABLE TO BE CALMED DOWN. MEDICATED PER EMAR. BROUGHT CHAIR OUT TO HALLWAY. PATIENT SAT AND TAPPED ON TABLE. PATIENT APPEARS CALM. CRYING HAS STOPPED.
--- NOTE | 2021-07-01 22:40 | NUR ---
AGGITATION/ANXIETY: PATIENT IS CONFUSED, EMOTIONALLY LIABLE AND TEARFULL AT TIMES. TRYING TO LEAVE THE UNIT. DURING ASSESSMENT PATIENT HAD AN ABSENT SEIZUIRE. SUDDENLY STOPPED TALKING AND TURNED HER HEAD TO THE RIGHT AND STARED FOR APPROXIMETLY 1 MINUTE. 02 SAT WAS 100% AT THE TIME AND VS WERE WNL. PATIENT BECAME AGGITATED WANTING TO LEAVE THE UNIT. PATIENT WAS REDIRECTED AND 2 MG OF IV ATIVAN WAS GIVEN.
--- NOTE | 2021-07-01 23:29 | NUR ---
AGGITATION/ANXIETY: PATIENT HAD POOR EFFECT FROM ATIVAN. CALL IS PLACED TO DR ROBLES. ORDER FOR ZYPREXA 5MG IM X 1 IS OBTAINED.
--- NOTE | 2021-07-02 00:08 | NUR ---
ANXIETY/AGGITATION: PATIENT WAS IN BED WITH EYE'S CLOSED. ZYPREXA IS NOT GIVEN AT THIS TIME.
--- NOTE | 2021-07-02 05:19 | NUR ---
SHIFT SUMMARY: PATIENT EVENTUALLY HAD GOOD EFFECT FROM ATIVAN AND HAS BEEN SLEEPING THROUGHOUT THE SHIFT. IM ZYPREXA WAS NOT GIVEN. VSS, NO REPORTS OF PAIN. PATIENT A&O TO SELF, THINK SHE IS IN A PSYCH UNIT. PATIENT WAS WONDERING IN THE HALLS, ATTEMPTING TO LEAVE UNIT AND ENTER OTHER PATIENT ROOMS. PATIENT IS NOT WOKEN FOR 0400 VS DUE TO HIGH AGGITATION AND ANXIETY.
--- NOTE | 2021-07-02 06:32 | NUR ---
SHIFT SUMMARY: PATIENT SLEPT WELL AFTER ATIVAN BUT IS NOW AWAKE AND IS CONFUSED. VSS, PATIENT HAD ANOTHER ABSENT SEIZURE WHILE STANDING IN HER ROOM. PATIENT KEEPS REPEATING, "THIS IS HELL, I AM IN HELL". STAFF ATTEMPTS TO RE-ORIENT PATIENT BUT IS UNSUCCESSFUL. PATIENT IS WANDERING IN THE FELIX AND WALKING INTO OTHER PATIENT ROOMS. SNACK AND TEA ARE GIVEN, PATIENT IS SITTING IN HER ROOM AT THIS TIME.
--- NOTE | 2021-07-02 12:10 | NUR ---
AGGITATION/ANXIETY: PATIENT VERY AGITATED THIS MORNING GOT OUT OF THE UNIT AND WAS RUNNING IN THE HALLS WANTING TO LEAVE THE HOSPITAL. PATIENT REDIRECTED AND HELPED TO HER ROOM. ZYPREXA IM ADMINISTRATED AND VEST/RESTRAINT INITIATED. PATIENT REFUSED ACCUCHECK AND SOME OF HER MEDICATIONS THIS MORNING. ZYPREXA EFFECTIVE FOR A FEW HOURS. THEN SHE BECAME AGITATED AGAIN, ATIVAN IV ADMINISTRATED. WILL CONTINE TO MONITOR.
--- NOTE | 2021-07-02 18:50 | NUR ---
PATIENT HAD TWO EPISODES OF ABSENT SEIZURES. ONE AT 15;10 AND ONE AT THIS TIME 18:50. PATIENT SUDDENLY STOPPED TALKING AND TUENED HER HEAD TO THE RIGHT FOR APPROXIMETLY 20-30 SECONDS.
--- NOTE | 2021-07-02 20:24 | NUR ---
2020 NOTED A ABSENT SEIZURE, STOPPED TALKING AND TURNED HEAD TO RIGHT. PATIENT THEN ABLE TO SOOT SELF UP IN BED. SAFETY MAINTAINED.
--- NOTE | 2021-07-03 04:06 | NUR ---
ALERT TO SELF. AGGRESSIVE AND COMBATIVE, KICKING, ATTEMPTING TO BITE AND HEAD BUTT STAFF, ALSO SPITTIG ON STAFF. SOFT RESTRAINTS INCREASED FROM 2 POINT BILATERAL WRISTS TO VEST TO 4 POINT SOFT RESTRAINT WITH VEST. PATIENT ABLE TO REMOVE RESTRAINTS. ALTERNATING BETWEEN ATIVAN 1MG PO AND ZYPREXA 0.5 MG Q4HRS. SKIN CHECKS Q4 HRS,INTACT, NO REDNESS. ONE TIME DOSE BENEDRYL ORDERED. SAFETY MAINTAINED.
[2021-07-03 05:04] LABS: Anion Gap 7 mmol/L (6-16); Blood Urea Nitrogen 9 mg/dL (8-24); Bun/Creatinine Ratio 16.8 (12.0-20.0); CO2, Blood 31 mmol/L (21-32); Calcium, Blood 9.4 mg/dL (8.5-10.1); Chloride, Blood 102 mmol/L (98-108); Creatinine, Blood 0.54 mg/dL (0.40-1.00); Glomerular Filtration Rate >60 (60-); Glucose, Blood 110 mg/dL (70-99); Potassium, Blood 3.7 mmol/L (3.5-5.5); Sodium, Blood 140 mmol/L (136-145)
--- NOTE | 2021-07-03 05:51 | NUR ---
PATIENT HAD A 30 SECOND SEIZURE, FACE TURNED TO RIGHT SIDE WITH A GLARE, WITH TWITCHING OF THE EYES. PATIENT CURRENTLY MOVING AROUND IN BED. SAFETY MAINTAINED.
--- NOTE | 2021-07-03 06:22 | NUR ---
PATIENT SCREAMING OUT "YOU'RE A NIGGER, YOU'RE A NIGGER" MULTIPLE TIMES. STATING " I JUST WANT TO PUNCH YOU IN THE FACE" ATTEMPTED TO REDIRECT.
--- NOTE | 2021-07-03 16:04 | NUR ---
NURSE NOTE AT 1538, PATIENT HAD A ABSENT SEIZURE. PATIENT WAS ASLEEP AND SAT STRAIGHT UP. CAMERA LICENSED STAFF MFT WAS FIRST TO ALERT. PATIENT WAS ASLEEP ON RIGHT SIDE PRIOR TO SEIZURE. PADDED SIDE RAILS, SAFETY MEASURES WERE MAINTAINED. VITALS WERE WNL AFTER SEIZURE. DOCUMENTED VITALS.
--- NOTE | 2021-07-03 18:10 | NUR ---
SHIFT SUMMARY PATIENT IS ALERT AND ORIENTED TO SELF ONLY. PATIENT WHEN ALERT IS AGRESSIVE AND CURSING. PATIENT HAS BEEN MAINTAINED IN SOFT WRIST RESTRAINTS AND RANJANA ALL SHIFT. OBTAINED AN ORDER FOR B52 FROM THE . ADDITIONAL B52 SHOTS Q4 ARE PRN FOR AGRESSION. PATIENT HAD A SEIZURE THIS AFTERNOON WHILE ASLEEP ON SIDE. PATIENT SAT STRAIGHT UP THROUGH SEIZURE AND WENT BACK TO SLEEP AFTER. PADDED SAFETY MEASURES MAINTAINED THROUGHOUT. PATIENT HAS HAD RESTRAINTS CHECKED AND REASSESSED FOR COMFORT AND SKIN ASSESSMENT. VITAL SIGNS REVIEWED. UPDATED SON ON STATUS OF PATIENT. BED IN LOCKED AND LOWEST POSITION. WILL MONITOR UNTIL SHIFT CHANGE.
--- NOTE | 2021-07-04 04:34 | NUR ---
PATIENT ALERT X'S 1, RECEIVED B52 SHOT X'1 ABOUT 1900 DUE TO AGRESSIVE BEHAVIOR ATTEMPTING TO KICK AND BITE STAFF AND REMOVING SOFT RESTRAINTS REPEATEDLY. RECEIVED ORDER TO APPLY LOCKED CUFFS TO BILATERAL WRISTS, SOFT RESTRAINTS REMAIN TO BILATERAL ANKLES WITH VEST. ROUTINE SKIN CHECKS COMPLETED, SKIN CLEAN DRY AND INTACT. SLEPT WELL THROUGH NIGHT. WOKE UP THIS AM CONFUSED ASKING "WHY DID SHE RECEIVE SHOTS." EXPLAINED TO PATIENT WHAT HAD OCCURED. PATIENT STATED SHE WAS UNAWARE OF WHAT HAPPENED AND APOLOGIZED FOR HER BEHAVIOR. THEN STATING SHE DOESN'T HAVE COVID. CONTINUED TO REORIENT PATIENT. CURRENTLY RESTING IN BED. SAFETY MAINTAINED.
--- NOTE | 2021-07-04 11:14 | NUR ---
PATIENT ALERT TO SEFT. CONTINUES TO BE AGITATED AND ADRESSIVE. ON BILATERAL CUFFED LOCKED, BILATERAL SOFT ANKLE AND RANJANA VEST RESTRAINTS. ATIVAN, HALDOL AND BENADRYL SHOTS GIVEN AT AROUND 0800 THIS MORNING, AGREED TO TAKE SCHEDULED MED. PATIENT CONTINUES TO BE AGITATED AND TAKING TO HER SELF. WILOL CONTINUE TO MONITOR.
--- NOTE | 2021-07-05 04:21 | NUR ---
SHIFT Patient alert to self. No combative behavior. Sliding up and down in bed, trying to bite side rails. When asked what she was doing patient stated i'm trying to breathe. Patient purpously holding breathe and asking how long do i do this for. Explained to patient she is not suppossed to be holdig her breathe. She stated well ok but i smoked for a long time. Also Lying in bed with mouth wide open, stating its because i smoke. Able to follow commands. Continent of urine. [address] , soft restraint to bilateral ankles, locked cuffs to blitaeral wrists, pose vest in place. Scheduled skin checks complete. Skin clean dry nd intact, no redness noted. Safety maintained, call alvarez in reach.
--- NOTE | 2021-07-05 06:49 | NUR ---
RECEIVED B52 DUE TO INCREASED YELLING, ATTEMPTING TO GET OUT OF RESTRAINTS, SLIDING UP AND DOWN IN BED. EFFECTIVE, CURRENTLY RESTING. SAFETY MAINTAINED.
--- NOTE | 2021-07-05 09:51 | NUR ---
PATIENT ORIENTED TO SELF, AWAKE WITH EPISODES OF AGITATATION, YELLING OUT, GROWLING AND ATTEPTING TO REMOVE RESTRAINTS. CONTINUES ON ON BILATERAL UPPER EXTREMINITES CUFFED LOCKED BILATERAL SOFT ANKLE AND RANJANA VEST RESTRAINTS. AGREED TO TAKE MORNING MEDICATION. FAMILY VISITED THIS MORNING
[2021-07-06] MEDS ORDERED: SPIR25 PO (01:13)
[2021-07-06] MEDS ORDERED: CARV3.125 PO (01:15)
[2021-07-06] MEDS ORDERED: PRAVASTATIN SOD10 MG PO (01:16)
--- NOTE | 2021-07-06 04:55 | NUR ---
ALERT TO SELF. ATTEMPTS TO GET OUT OF BED AND REMOVE RESTRAINTS, TRYING TO BITE SIDE RAILS. MEDICATED WITH B52 AT 1952, SOME RELIEF. RECEIVED SCHEDULED KLONOPIN AND SEROQUEL, EFFECTIVE. TWO POINT LOCK CUFFS TO WRISTS IN PLACE, SKIN CHECKS COMPLETE. INCONTINENT EPISODES OF URINE, JOSE AREA RED, CLEANED WITH SOAP AND WATER, BARRIER CREAM APPLIED. SLEPT THROUGH NIGHT. SAFETY MAINTAINED.
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
--- NOTE | 2021-07-06 11:28 | NUR ---
PT STATES B/M YEST PATO AT ABOUT 11 PM. NONE CHARTED SINCE . ABD SOFT NONTENDER, B/T X4
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
--- NOTE | 2021-07-07 08:00 | NUR ---
PT PLEASANT TODAY. A/O TO SELF. FAM. PRES. DOES NOT KNOW DATE. PT HAS BEEN TALKING WITH NUMBERS TODAY. CONTANTLY CALLING OUT NUMBERS. OCCATIONALLY COLORS. STATES WE HERE TO GET HER SOME GLASSES. NONSENSICAL TALK. REMAINS IN RESTRAINTS. NOT REDIRECTABLE. H/R REG, NO MURMER NOTED. NO TELE. LUNGS CLEAR, RESP EASY, UNLABORED. ON R.A. BT X4 LAST BM PER PT YEST. NOT DOCUMENTED. VOIDS BEDPAN. RESTRAINTS CONTINUED. BED IN LOW POSITION, DIONNA LLITE IN REACH, BED ALARM AND MONITOR ON FOR SAFETY
--- NOTE | 2021-07-07 15:46 | NUR ---
PT MOSTLY PLEASANT TODAY. HAS BEEN CHANTING NUMBERS AND COLORS TODAY. NO INAPPROP COMMENTS , ALTHOUGH HAS BEEN INTENT ON STATING WANTS TO GO HOME. DR SEGOVIA HAS INDICATED TO ME THAT WILL INCREASE SEROQUEL FOR THIS PATO. PT NOT ABLE TO FOLLOW INSTRUCTIONS, OR KEEP TRACK ON THOUGHTS, OR TO BE REDIRECTABLE, SO CONTINUING THE RESTRAINTS. NO NEW CONCERNS NOTED. BED IN LOW POSITION, CALL LITE IN REACH, BED ALARM ON, MONITOR ON, AND RESTRAINTS INTACT.
--- NOTE | 2021-07-08 04:41 | NUR ---
PT IS AWAKE THIS MORNING. PT IS ALERT AND ORIENTED X2-3, AT THE BEGINNING OF SHIFT CHANGE PT WAS ABLE TO REMOVE ONE OF HER LOCKED CUFFS. PT IS COOPERATIVE AND CAN BE EASILY REORIENTED. PT DOES MUMBLE TO HERSELF AND MAKES CONFUSED CONVERSATION BUT DOES NOT SPEAK INAPPROPRIATELY. PT IS ON RA SATTING >95, PT NOT TELE MONITORED PULSES ARE 2/2 STRONG. OFFERED HYGIENE AND ORAL FLUIDS EVERY 1-2 HOURS WHILE AWAKE, OTHERWISE NO ACUTE EVENTS OVERNIGHT.
--- NOTE | 2021-07-08 07:38 | NUR ---
VISUALLY HALLUCINATING --SEES A MAN IN HER ROOM AND WANTS HIM OUT. SCREAMS. NOT REDIRECTABLE. IN TUFF CUFFS BOB UPPER . KICKED RN IN HEAD LAST NIGHT.
--- NOTE | 2021-07-08 11:12 | NUR ---
RENATO NICOLE NOTIFIED PATIENT DID NOT SLEEP LAST NIGHT AND WAS VERY AGITATED. AGITATED THIS AM ALSO AND GIVEN ; BENADRYL, ATIVAN AND HALDOL WITH ABOUT 2 HOURS OF CALM. ORDER SEROQUEL 50 MG Q 8 PRN
--- NOTE | 2021-07-08 15:13 | NUR ---
ALERT TO SELF. AGITATED THIS A.M. WITH TRYING TO GET OUT OF BED AND YELLING. VISUALLY HALLUCINATING, SEEING MEN IN HER ROOM AND WANTS THEM OUT. MEDS ADJUSTED BY AND . CONTINENT/INCONTINENT.UNLABORED RESPIRATIONS. IN RESTRINTS VERY WEAK AND IMPULSIVE. WCTM
--- NOTE | 2021-07-08 18:03 | NUR ---
PATIENT REQUEST SOMETHING FOR "AGITATION". GIVEN SEROQUEL. PATIENT WANTED CLONIPIN AND WAS TOLD SHE WOULD GET THAT LATER TONIGHT.
--- NOTE | 2021-07-09 05:00 | NUR ---
PT IS CURRENTLY SLEEPING THIS MORNING. PT CONTINUED TO BE IRRATIC AND STARTED SHOUTING/YELLING, GAVE THE PT SOME TIME TO CALM DOWN AFTER NIGHT MEDICATIONS BUT PT STILL CONTINUED TO YELL OUT. GAVE THE PT ATIVAN, BENADRYL, AND HALDOL MIXTURE. TOOK THE PT A COUPLE HOURS TO RESPOND TO THE MEDICATION BUT PT FINALLY WAS ABLE TO RELAX AND FALL ASLEEP. PT WAS OBSESSIVE OVER CALLING HER FAMILY BUT THE PROVIDED NUMBERS FROM THE PT WERE WRONG NUMBERS. OTHERWISE VITALS WERE STABLE NO C/O SOB, N/V, OR PAIN. PT DID TRY TO GET OUT OF BED A COUPLE TIMES DURING THE NIGHT BUT PT WAS EASILY REDIRECTABLE.
--- NOTE | 2021-07-09 16:30 | NUR ---
SHIFT SUMMARY THE PATIENT IS ALERT AND ORIENTED X2, SELF AND FAMILY AT TIMES. THE PATIENT IS OUT OF TUFF CUFFS THIS SHIFT. VEST RESTRAINTS AND FOUR RAILS IN PLACE. THE PATIENT HAS TRIED TO GET OUT OF BED TWICE WITHOUT SUPERVISION. THE PATIENT HAS BEEN REDIRECTABLE WITH A WORD PUZZLE BOOK, MOST OF THE TIME. ALTHOUGH, THE PATIENT HAS BEEN CONFUSED MOST OF THIS SHIFT. THE PATIENT WAS ABLE TO SPEAK TO FAMILY VIA TELEPHONE. NO ACUTE CHANGES. BED ALARM ON. CALL LIGHT WITHIN REACH. THIS NURSE WILL CONTINUE TO CARE FOR THE PATIENT UNTIL SHIFT REPORT IS GIVEN TO ONCOMING NURSE.
--- NOTE | 2021-07-09 22:34 | NUR ---
PT CONTINUES TO BE AGITATED, PULLING AT RANJANA VEST, AND YELLING/SCREAMING FROM THE ROOM. PT STATES SHE IS SEEING A MAN WALKING PAST HER ROOM, TRIED REORIENTING THE PT BUT WITHOUT SUCCESS, PT STILL FIXATED ON THIS MALE PRESENCE. GAVE PATIENT HALDOL, ATIVAN, AND BENADRYL MIXTURE PER EMAR FOR AGITATION.
--- NOTE | 2021-07-10 05:17 | NUR ---
PT IS ASLEEP THIS MORNING. PT REMAINED AGITATED OVERNIGHT, YELLING OUT FROM THE ROOM. THE PT IS ALERT AND ORIENTED X2-3 STILL VERY CONFUSED AND THINKS SHE IS AT AN URGENT CARE. PT IS ON RA SATTING >95. NOT TELE MONITORING. PT URINATING WELL AND IS ABLE TO CALL WHEN NEEDING TO GO. PT DID UNDO HER RANJANA VEST A COUPLE OF TIMES BUT DID NOT TRY TO GET OUT OF BED. PT DID WELL WITHOUT WRIST RESTRAINTS TONIGHT. OTHERWISE NO ACUTE EVENTS OVERNIGHT.PT CALL LIGHT AND BELONGINGS WITHIN REACH.
[2021-07-10 06:07] LABS: Albumin, Blood 3.4 g/dL (3.4-5.0); Anion Gap 8 mmol/L (6-16); Blood Urea Nitrogen 15 mg/dL (8-24); Bun/Creatinine Ratio 25.5 (12.0-20.0); CO2, Blood 27 mmol/L (21-32); Calcium, Blood 9.1 mg/dL (8.5-10.1); Chloride, Blood 104 mmol/L (98-108); Creatinine, Blood 0.59 mg/dL (0.40-1.00); Glomerular Filtration Rate >60 (60-); Glucose, Blood 91 mg/dL (70-99); Phosphorus, Blood 4.8 mg/dL (2.5-4.9); Sodium, Blood 139 mmol/L (136-145)
--- NOTE | 2021-07-10 15:57 | NUR ---
SHIFT SUMMARY PT AxOx3 WITH FREQUENT CONFUSION. PT'S RANJANA VEST RESTRAINT REMOVED THIS SHIFT. PT HAS BEEN COOPERATIVE AND REDIRECTABLE SINCE RESTRAINT REMOVAL. PT HAS BEEN INSISTENT THAT SHE IS READY TO GO HOME AND REPEATEDLY ASKS HOW LONG UNTIL THE DOCTOR WILL COME IN, EVEN AFTER BEING TOLD THE DR HAS ALREADY ROUNDED AND REMINDING HER OF THE CURRENT CARE PLAN. REDIRECTION AND DISTRACTION UTILIZED HEAVILY BY CARE TEAM TODAY. NO COMBATIVE BEHAVIOR NOTED ON THIS SHIFT. PT STARTED ON MEDICATED CREAM FOR RASH ON BOTTOM/JOSE AREA. PT VITALS REVIEWED. PT IS CURRENTLY RESTING IN BED WITH CALL LIGHT IN REACH. DENIES ANY NEEDS AT THIS TIME.
--- NOTE | 2021-07-11 03:55 | NUR ---
SHIFT SUMMARY ADMITTED FOR HYPONATREMIA/PNEUMONIA/SEPSIS. FULL CODE. PLAN IS FOR DC HOME W/FAMILY. CONSULT IS DR. SEGOVIA. 1000 ML FREE WATER RESTRICTION. SHE IS CONFUSED, SHE DOES WANDER. SHE IS INDEPENDENT IN ROOM. SHE WAS ABLE TO BE REDIRECTED THIS SHIFT.
--- NOTE | 2021-07-11 10:50 | NUR ---
AM NOTE SEROQUIL PRN DOSE AT 1040 PT CONFUSED, UP IN THE HALLWAYS, KEEPS ASKING IF SHE CAN LEAVE.
--- NOTE | 2021-07-11 13:10 | NUR ---
MRI FORM ATTEMPTING TO FILL OUT MRI SCREENNG FORM. PT UNABLE TO ANSWER THE SCREENING QUESTIONS. I TRIED CALLING TOMASA HAYNES, LISTED FATHER/ NEXT OF KIN - NUMBER DISCONNECTED. LEFT DISCRETE VM WITH DAUGHTER CARMEN ANDERSON. AWAITING CALL BACK
--- NOTE | 2021-07-11 17:03 | NUR ---
MS ANDERSON HAD A HEAD MRI W/O CONTRAST. CALLED DR GROSS TO GET ORDER FOR [facility] TO SETTLE HER FOR THE TEST, BUT DUE TO TIME RESTRAINTS I WAS UNABLE TO PLACE THE PIV IN TO GIVE THE ATIVAN, BUT SHE DID TOLERATE A QUICK PART OF THE MRI BEFORE RETURNING BACK TO [facility].
--- NOTE | 2021-07-11 17:24 | NUR ---
SHIFT NOTE. MS ANDERSON HAS BEEN CONFUSED AND RESTLESS TODAY, UP IN THE HALLS, REDIRECTED BACK TO HER ROOM FREQUENTLY. SEREQUIL PO GIVEN THIS MORNING BUT IT DOESN'T SEEM TO HAVE HELPED. DUE AGAIN AT 1840. LIMITED HEAD MRI DONE DUE TO RESTLESSNESS, BUT PT DID TOLERATE PART OF IT. C/O GUM DISCOMFORT, BUT SHE SAID THAT SHE FORGOT THAT SHE HAS HAD HER TEETH PULLED PREVIOUSLY. TYLENOL GIVEN FOR GUM PAIN. FREQUENT MONITORING, ROOM CAMERA LEAN FACILITATOR IN REGULAR COMMUNICATION. STEADY GAIT.
--- NOTE | 2021-07-12 04:11 | NUR ---
SHIFT SUMMARY ADMITTED FOR HYPONATREMIA. FULL CODE. PLAN IS FOR DC HOME W/FAMILY VS. PLACEMENT. SHE IS CONFUSED. SHE USES NONSENSICAL SPEECH. SHE IS REDIRECTABLE. SHE IS IMPULSIVE, SHE DOES WANDER. SHE IS NOT COMBATIVE. 1000 ML FREE WATER RESTRICTION. CREAM FOR RASH APPLIED ORDERED. HEAD MRI PERFORMED ON PREVIOUS SHIFT. KYMBERLYE GHASSAN. CONSULT IS DR. SEGOVIA. SHE DID NOT SLEEP WELL THIS SHIFT, EXITING HER BED FREQUENTLY AND WANDERING INTO THE SCU HALLWAY
--- NOTE | 2021-07-12 08:34 | NUR ---
MS ANDERSON REMAINS CONFUSED, MOST CONVERSATION REPETATIVE, FOCUSED ON WHEN SHE CAN GO HOME, OR NON SENSICAL. ABLE TO TELL ME HER NAME, , DOESN'T KNOW WHERE SHE IS, WHY SHE IS HERE OR THE DATE. UP FREQUENTLY IN ROOM AND INTO THE HALLWAY. BED LOW, CALL LIGHT IN REACH.
--- NOTE | 2021-07-12 10:29 | NUR ---
PT C/O LEFT ANKLE PAIN, IT HAS BEEN SLIGHTLY SWOLLEN, BUT ABLE TO WT BEAR WITHOUT PROBLEMS. UP IN ROOM AND HALLWAYS A LOT, RAMBLING CONFUSED CONVERSATION. GIVEN TYLENOL FOR ANKLE PAIN AND SEREQUIL PRN DOSE. PT DRINKING WATER THAT SHE GOT FROM THE [employer]UC[employer] IN HER ROOM, WATER AND CUPS REMOVED AND CRANBERRY JUICE GIVEN TO PT. WILL CONTINUE TO MONITOR.
--- NOTE | 2021-07-12 11:12 | NUR ---
PT HAD A C/O CP- CALLED DR GROSS. PT WAS C/O CHEST PAIN, WHEN ASKED TO DESCRIBE IT SHE STATED IT WAS A PRESSURE, WHEN SHE WAS INSTRUCTED TO TAKE A DEEP BREATH SHE SHOWED SIGNS OF PAIN AND INDICATED HER RIGHT ARM PIT AND MID BACK. DR GROSS IS AWARE BP 109/73 WITH A PULSE OF 80, NO S&S OF DISTRESS, JUST THE STATEMENT OF CHEST PAIN AT THIS TIME, WILL CTM.
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
--- NOTE | 2021-07-12 12:09 | NUR ---
PT C/O VAGUE CHEST PAIN, MORE RESTLESS, OUT IN THE HALLWAYS AND ATTEMPTING TO LEAVE FROM EXIT DOORS. SECURITY HERE,NO ACTION NEEDED. RN CALLED DR GROSS. ATIVANORAL TABLET GIVEN NOW. PT CALMER WHEN ATIVAN WAS GIVEN, STILL FREQUENTLY TALKS ABOUT LEAVING.
--- NOTE | 2021-07-12 14:08 | NUR ---
RETURNED FROM [facility] - SURGICAL GARMENT INSPECTOR PREPPING HALDOL/ATIVAN/BENARDYL IM. SECURITY AT PTS SIDE. PT TOLERATED IM DELTOID INJECTIONS. SHE IS NOW STILL VERY TALKATIVE, FREQUENTLY EXPRESSING DESIRE TO LEAVE. SHE SETTLES SOMEWHAT WITH CONSTANT COMPANIONSHIP, BUT WALKS OUT OF THE ROOM TO LEAVE WHEN ALONE. SHE DENIED HAVING ANY CHEST PAIN ANYMORE. AWAITING FURTHER ORDERS FROM DR GROSS.
--- NOTE | 2021-07-12 16:16 | NUR ---
MS ANDERSON HAS BEEN CALMER. STILL VERBALISING REQUEST TO LEAVE, BUT SHE HAS BEEN CALMER IN HER DEMENOR, VOICE NORMAL TONE/LEVEL.
--- NOTE | 2021-07-12 17:24 | NUR ---
MS ANDERSON REMAINS CONFUSED, CALMER NOW, BUT DID GET AGGITATED EARLIER, GIVEN IM BENEDRYL/ATIVAN AND HALDOL, AFTER AN ATTEMPT WITH PO ATIVAN TO HELP HER SETTLE. PAPERS FOR HOLD SIGNED BY DR GROSS. PT HAS BEEN UP TO THE BATHROOM, STEADY GAIT. C/O CHEST PAIN EARLIER NOTED. ATIVAN DID HELP CP PER PT. C/O LEFT ANKLE PAIN WITH SOME SWELLING, WHICH IS UNCHANGED. TYLENOL GIVEN FOR ANKLE PAIN WITH LITTLE PAIN RELIEF. BED LOW. ROOM CAMERA MONITOR CONTINUES. CALL LIGHT IN REACH.
--- NOTE | 2021-07-13 03:44 | NUR ---
SHIFT SUMMARY: CONTINUED CONFUSION, A/O X 1-2. ORIENTED TO SELF AND OCCASSIONALLY PLACE OTHERWISE DISORIENTED TO TIME AND SITUATION. PT ADLIB AMBULATION, CONTINENT VOIDING. NO PAIN REPORTED DURING THIS SHIFT, PATIENT WAS ABLE TO REST COMFORTABLY THROUGHOUT THE SHIFT.
--- NOTE | 2021-07-13 04:13 | NUR ---
NURSE NOTE- CANDIDA CRESPO CONTACTED DUE TO HYPOTENSION 93/54- BLOOD PRESSURE RECHECK SYSTOLIC BP REMAINED 86 AND 88 WITH MAP OF 68. NON SYMPTOMATIC. GAVE TELEPHONE ORDER FOR LR BOLUS 1 LITER OVER AN HOUR- MD AWARE OF ENCEPHALOPATHY SUSPECTED TO BE FROM REPLACING SODIUM TOO FAST, MD OKAY TO CONTINUE WITH LR BOLUS.
--- NOTE | 2021-07-13 14:46 | NUR ---
RN NOTE MS ANDERSON CONTINUES TO BE CONFUSED, RAMBLING CONVERSATION THAT IS CONSISTANT WITH THE CONVERSATION SHE'S HAD THE LAST TWO DAYS I WORKED WITH HER. SHE FREQUENTLY TALKS ABOUT LEAVING. SHE DID REST THIS MORNING, BUT HAS BECOME MORE RESTLESS AND AGGITATED AT THIS TIME - PRN SEREQUIL GIVEN. PT C/O GENERALISED CHEST PAIN AND BACK PAIN THIS MORNING ADN THROUGHOUT THE SHIFT, DR PARRISH IS AWARE AND SAW HER THIS MORNING. HE SAW THE RASH THAT SHE HAS ON HER LOWER BACK/ COXXYC AREA AND HE SAID THAT HE WILL PRESCRIBE HYDROCORTISONE CREAM FOR IT. ROOM CAMERA MONITOR ON, BED LOW, CALL LIGHT IN REACH.
--- NOTE | 2021-07-13 17:50 | NUR ---
SHIFT SUMMARY - NO ACUTE CHANGES SINCE RN NOTE. 1 DOSE OF SEREQUIL 75MG THIS AFTERNOON. PT STILL WANDERING THE HALLS, BUT LOW TONE OF VOICE, MOSTLY CALM. STEADY GAIT. FREQUENT CHECKS AND CAMERA ROOM MONITOR ON.
--- NOTE | 2021-07-13 18:42 | NUR ---
RN NOTE - PT C/O CENTRAL GENERALISED CP, WHICH SHE DESCRIBED THE SAME THE CP SHE HAD THIS MORNING WHEN DR PARRISH WAS ASSESSING HER. PT SAID SHE FEELS ANXIOUS. GIVEN SEREQUIL PRN DOSE.
--- NOTE | 2021-07-14 04:17 | NUR ---
SHIFT SUMMARY PT COMPLAINED OF CP AND BELCHING AT CHANGE OF SHIFT. NEW ORDER FOR TUMS PLACED BY DR JEAN AND PT MEDICATED. PT WILL BE COOPERATIVE ONE MOMENT AND THEN COMBATIVE AND AGRESSIVE THE NEXT. PT GIVEN B52 THIS EVENING, ALTHOUGH IT DIDN'T TAKEN EFFECT UNTIL MUCH LATER. PT IS IMPULSIVE AND IS DIFFICULT TO REDIRECT. PT DOES HAVE THE CALL LIGHT WITHIN REACH.
[2021-07-14 06:03] LABS: BASOPHILS ABSOLUTE AUTO 0.06 K/mm3 (0.00-0.23); BASOPHILS PERCENT AUTO 1 % (0-2); EOSINOPHILS ABSOLUTE AUTO 0.19 K/mm3 (0.00-0.68); EOSINOPHILS PERCENT AUTO 3 % (0-6); Hematocrit 39.9 % (33.0-51.0); Hemoglobin 13.1 g/dL (11.5-16.0); IMMATURE GRAN ABSOLUTE AUTO 0.02 K/mm3 (0.00-0.10); IMMATURE GRAN PERCENT AUTO 0 % (0-1); LYMPHOCYTES ABSOLUTE AUTO 2.91 K/mm3 (0.84-5.20); LYMPHOCYTES PERCENT AUTO 40 % (21-46); MONOCYTES ABSOLUTE AUTO 0.79 K/mm3 (0.16-1.47); MONOCYTES PERCENT AUTO 11 % (4-13); Mean Corpuscular HGB 30.7 pg (26.0-34.0); Mean Corpuscular HGB Conc 32.8 g/dL (31.5-36.5); Mean Corpuscular Volume 93 fL (80-100); Mean Platelet Volume 9.9 fL (9.1-12.4); NEUTROPHILS PERCENT AUTO 45 % (41-73); Platelet Count 267 K/mm3 (150-400); RDW Coefficient Variation 13.7 % (11.7-14.2); RDW Standard Deviation 47.2 fL (35.1-46.3); Red Blood Cell Count 4.27 M/mm3 (3.80-5.20); White Blood Cell Count 7.27 K/mm3 (4.00-11.30)
[2021-07-14 06:22] LABS: Alanine Aminotransfer (ALT/SGP 32 U/L (12-78); Albumin, Blood 3.3 g/dL (3.4-5.0); Albumin/Globulin Ratio 1.1 (0.8-1.8); Alk Phos 76 U/L (50-136); Anion Gap 4 mmol/L (6-16); Aspartate Aminotrans (AST/SGOT 16 U/L (12-37); Bilirubin, Total 0.4 mg/dL (0.1-1.0); Blood Urea Nitrogen 15 mg/dL (8-24); Bun/Creatinine Ratio 20.9 (12.0-20.0); CO2, Blood 26 mmol/L (21-32); Calcium, Blood 8.6 mg/dL (8.5-10.1); Chloride, Blood 107 mmol/L (98-108); Creatinine, Blood 0.72 mg/dL (0.40-1.00); Globulin, Blood 3.1 g/dL (2.2-4.0); Glomerular Filtration Rate >60 (60-); Glucose, Blood 97 mg/dL (70-99); Potassium, Blood 4.1 mmol/L (3.5-5.5); Sodium, Blood 137 mmol/L (136-145); Total Protein, Blood 6.4 g/dL (6.4-8.2)
--- NOTE | 2021-07-14 14:01 | NUR ---
PT HAS BEEN COMING OUT TO NURSE SERVERS AND SITTING AT COMPUTER DESK THIS MORNING. SHE HAS BEEN ASK REPEATEDLY TO NOT SIT AT THE COMPUTER DESK, SHE IS TRYING TO TYPE NOTES TO THE STAFF (SHE STATED). STAFF HAS REPEATEDLY EXPLAINED THAT THESE ARE HOSPITAL STAFF COMPUTERS AND THAT THE ROLLING CHAIRS ARE UNSAFE FOR PATIENTS. SHE HAS BEEN CONTINUIOUS WITH THIS THIS MORNING. THE PT HAS ALSO BEEN REQUESTING TO LEAVE AND OFFERING TO PAY STAFF TO OPEN LOCKED FELIX DOOR TO LET HER LEAVE. NOW PT HAS COME INTO FELIX AGITATED AND STATING SHE CAN NOT STAY HERE. PT STATING SHE IS LEAVING, WILL NOT RETURN TO ROOM, PUSHING ON LOCKED FELIX DOOR ATTEMPTING TO LEAVE. PT IS REPEATEDLY STATING SHE IS BEING HELD AGAINST HER WILL FOR A SPRAINED ANKLE AND NEEDS TO LEAVE. PT IS THREATENING STAFF THAT IF WE DON'T UNLOCK THE DOOR AND LET HER LEAVE SHE WILL BECOME ANGRY AND ACT ON THAT ANGER. SECURITY CALLED AND PT WENT BACK TO HER ROOM ON HER OWN BUT STAYED IN DOORWAY AND CONTINUED TO STATE SHE WAS LEAVING. PER EMAR PT WAS MEDICATED TO HELP HER CALM FROM HER AGITATED STATE. PT IS NOW IN HER ROOM LOOKING AT A MAGAZINE.
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
--- NOTE | 2021-07-15 04:38 | NUR ---
SHIFT SUMMARY PT A/O TO PERSON, PLACE AND TIME BUT NOT SITUATION. SHE HAS BEEN UP IN ROOM AND IN HALLS AND HAD TO BE REDIRECTED SEVERAL TIMES. SHE ALSO WANTED TO USE COMPUTER NEXT TO HER ROOM AND WAS INSTRUCTED THAT IT WAS FOR STAFF AND SHE WAS COOPERATIVE. SHE STATES THAT SHE WANTS TO GO HOME AND CHECK ON HER KIDS.PT REFUSED HER SKIN ASSESSMENT AND ALSO REFUSED 0000 [place]STATIN. DENIES ANY PAIN AND NO ACUTE DISTRESS NOTED.
[2021-07-15] MEDS ORDERED: Acetaminophen650 M1 PO (09:54)
[2021-07-15] MEDS ORDERED: Calcium Carbon500 MG PO (09:58)
[2021-07-15] MEDS ORDERED: CLON1 PO (09:59)
[2021-07-15] MEDS ORDERED: NICO21TP TOP (10:00)
[2021-07-15] MEDS ORDERED: NYSTRIT TOP (10:00)
[2021-07-15] MEDS ORDERED: QUET25 PO ×2 (10:02→10:03)
[2021-07-15] MEDS ORDERED: B-1100 M2 PO (10:03)
[2021-07-15] MEDS ORDERED: VISBIOME 112.51 EACH PO (10:04)
--- NOTE | 2021-07-15 16:04 | NUR ---
DAY SHIFT SUMMARY 55 YR OLD FEMALE PT ADMITTED FOR HYPONATREMIA AND ON 2 MD HOLD. PER MD PT TO BE DISCHARGED ONCE MD HOLD IS UP AND DISCHARGE PLAN IS IN PLACE. PT IS CONFUSED AND FORGETFUL. WHILE ON THE PHONE WITH A RELATIVE TODAY SHE WANTED THE PHONE NUMBER TO REACH HER MOTHER, THE RELATIVE REMINDED THE PT THAT HER MOTHER HAD 2 YEARS AGO. PT BECAME UPSET BY THIS AND FELT THE INFORMATION HAD BEEN KEPT FROM HER. PT WAS MEDICATED PER EMAR FOR HER ANXIETY/AGITATION. MD CHANGED PT'S WATER RESTRICTIONS FROM 1000ML TO 1500ML DAILY. CALL LIGHT IS WITHIN REACH OF PT. FREQUENT ROUNDING. PT IS ON REMOTE MONITORING.
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
--- NOTE | 2021-07-16 05:24 | NUR ---
SHIFT SUMMARY PT ALERT TO SELF AND TIME, ATTEMPTED TO REORIENT WITHOUT CHANGE NOTED, COOPERATIVE AT TIMES BUT WAS COMBATIVE ONCE WHEN SHE WAS ATTEMPTING TO LEAVE THE UNIT. PT REDIRECTED TO HER ROOM AND SHE APOLOGIZED FOR HITTING. PT PULLED HER IV OUT AT FRONT OF SHIFT AND STATED THAT IT WAS ITCHING. IV SITE WNL. RASH NOTED ON BUTTOCKS AND WAS MEDICATED PER MAR. DENIED ANY PAIN AND NO ACUTE DISTRESS NOTED.
--- NOTE | 2021-07-16 07:57 | NUR ---
pt up ambulating in the room, coming out in the mccray, incesantly needing something, she did cooperate with assessment, and took her po meds with water without diff, lungs are clear t/o, on r/a, resp even and unlabored, no cough noted, hrr, no edema noted, ppp+2, cap refill<3sec, vs stable, afebrile, btx4, abd flat soft nontender, voids without diff, skin has rash on bottom, otherwise c/w/d, catalino, up ad annie in room, vane, does not know where she is, asks repeatedly same questions. call light in reach but doesn't use.
--- NOTE | 2021-07-16 15:46 | NUR ---
DISCHARGE REVIEWED WITH PT. SHE ACKNOWLEDGED UNDERSTANDING. DAUGHTER OBSERVED. STATES WILL TAKE HER TO GET MEDS AND ASSIST WITH SETTING PILL BOX FOR HER ON WEEKLY BASIS. NO IV, NO TELE. PT WHEELED TO DOOR BY AIDE. [id number]
== END 2021-07-16 16:36 | disposition home or self-care (01) | DRG 92 ==
LOC: ER 21:00 → MEDS 06-28 02:42 → ICUW 06-28 02:42 → SURS 06-29 13:35 → MEDS 07-01 15:17 → ENPENDDIS 07-16 12:06 → MEDS 07-16 16:36
PROVIDERS: Family Medicine; Internal Medicine; Student in an Organized Health Care Education/Training Program; ADMIT Family Medicine
PROC: 3E033XZ Introduction of Vasopressor into Peripheral Vein, Percutaneous Approach (ICD-10-PCS; principal; 2021-06-28)
DX: G92.8 Other toxic encephalopathy (principal); E87.1 Hypo-osmolality and hyponatremia; R63.1 Polydipsia; I95.9 Hypotension, unspecified; R56.9 Unspecified convulsions; J44.9 Chronic obstructive pulmonary disease, unspecified; I10 Essential (primary) hypertension; F41.1 Generalized anxiety disorder; E11.9 Type 2 diabetes mellitus without complications; K21.9 Gastro-esophageal reflux disease without esophagitis; I25.10 Atherosclerotic heart disease of native coronary artery without angina pectoris; Z88.2 Allergy status to sulfonamides; Z78.1 Physical restraint status; Z79.899 Other long term (current) drug therapy; Z72.89 Other problems related to lifestyle; Z87.891 Personal history of nicotine dependence; Z90.710 Acquired absence of both cervix and uterus
CPT/HCPCS: 36415; 51702; 70450; 71045; 80048; 80053; 80069; 81001; 82947; 83605; 83735; 83930; 83935; 84145; 84295; 84300; 85025; 85610; 85730; 87040; 87086; 93005; 93010; 94762; 96365; 96366; 96368; 96375; 99285-25; A9270; C1751; G0480; J0696; J1200; J1630; J1650; J1815; J1885; J1953; J2060; J2310; J2543; J3370; J3411; J3480; J7030; J7050; J7060; J7120

== ENCOUNTER 2021-07-17 12:30 | Observation (INO) | payer MEDICARE ==
[~2021-07-17] VITALS: Ht 167.6 cm; Wt 81.1 kg
[~2021-07-17 12:30] MED LIST changes: +Acetaminophen650 M1 PO; +B-1100 M2 PO; +CARV3.125 PO; +CLON1 PO; +Calcium Carbon500 MG PO; +METF500C PO; +NICO21TP TOP; +NYSTRIT TOP; +PRAVASTATIN SOD10 MG PO; +QUET25 PO; +QUETIAPINE FUM400 M2 PO; +SPIR25 PO; +VISBIOME 112.51 EACH PO
[2021-07-17 13:49] LABS: Source, Urine Straight Cath
[2021-07-17 13:53] LABS: BASOPHILS ABSOLUTE AUTO 0.03 K/mm3 (0.00-0.23); BASOPHILS PERCENT AUTO 0 % (0-2); EOSINOPHILS ABSOLUTE AUTO 0.05 K/mm3 (0.00-0.68); EOSINOPHILS PERCENT AUTO 1 % (0-6); Hematocrit 42.9 % (33.0-51.0); Hemoglobin 14.1 g/dL (11.5-16.0); IMMATURE GRAN ABSOLUTE AUTO 0.03 K/mm3 (0.00-0.10); IMMATURE GRAN PERCENT AUTO 0 % (0-1); LYMPHOCYTES ABSOLUTE AUTO 1.95 K/mm3 (0.84-5.20); LYMPHOCYTES PERCENT AUTO 20 % (21-46); MONOCYTES ABSOLUTE AUTO 0.52 K/mm3 (0.16-1.47); MONOCYTES PERCENT AUTO 5 % (4-13); Mean Corpuscular HGB 30.7 pg (26.0-34.0); Mean Corpuscular HGB Conc 32.9 g/dL (31.5-36.5); Mean Corpuscular Volume 93 fL (80-100); Mean Platelet Volume 10.1 fL (9.1-12.4); NEUTROPHILS ABSOLUTE AUTO 7.19 K/mm3 (1.96-9.15); NEUTROPHILS PERCENT AUTO 74 % (41-73); Platelet Count 382 K/mm3 (150-400); RDW Coefficient Variation 13.9 % (11.7-14.2); RDW Standard Deviation 47.6 fL (35.1-46.3); White Blood Cell Count 9.77 K/mm3 (4.00-11.30)
[2021-07-17 13:54] LABS: Bilirubin, Urine Neg (Neg); Blood, Urine Neg (Neg); Glucose Qualitative, Urine Neg (Neg); Ketones, Urine Neg (Neg); Leukocyte Esterase, Urine Neg (Neg); Nitrite, Urine Neg (Neg); Protein, Urine 1+ (Neg); Urobilinogen, Urine NORM (Normal)
[2021-07-17 14:03] LABS: Appearance, Urine Clear (Clear); Color, Urine Pale Yellow (P-Yellow)
[2021-07-17 14:05] LABS: U Amphetamine Screen Not Detected; U Barbituate Screen Not Detected; U Benzodiazapine Screen DETECTED; U Buprenorphine Screen Not Detected; U Cannabinoids Screen Not Detected; U Cocaine Screen Not Detected; U Methadone Screen Not Detected; U Methamphetamine Screen Not Detected; U Opiates Screen Not Detected; U Oxycodone Screen Not Detected; U Phencyclidine Screen Not Detected; U Propoxyphene Screen Not Detected
[2021-07-17 14:07] LABS: Alanine Aminotransfer (ALT/SGP 44 U/L (12-78); Albumin, Blood 3.7 g/dL (3.4-5.0); Albumin/Globulin Ratio 0.9 (0.8-1.8); Alk Phos 84 U/L (50-136); Anion Gap 7 mmol/L (6-16); Aspartate Aminotrans (AST/SGOT 21 U/L (12-37); Blood Urea Nitrogen 10 mg/dL (8-24); Bun/Creatinine Ratio 16.3 (12.0-20.0); CO2, Blood 27 mmol/L (21-32); Chloride, Blood 104 mmol/L (98-108); Creatinine, Blood 0.61 mg/dL (0.40-1.00); Ethanol (Alcohol), Blood, Med <3 mg/dL; Globulin, Blood 3.9 g/dL (2.2-4.0); Glomerular Filtration Rate >60 (60-); Glucose, Blood 117 mg/dL (70-99); Potassium, Blood 4.4 mmol/L (3.5-5.5); Sodium, Blood 138 mmol/L (136-145); Total Protein, Blood 7.6 g/dL (6.4-8.2)
[2021-07-17 15:48] LABS: Influenza A, PCR NEGATIVE (NEGATIVE); Influenza B, PCR NEGATIVE (NEGATIVE); Resp Syncytial Virus, PCR NEGATIVE (NEGATIVE); SARS-Cov-2 (COVID-19) PCR, MMC NEGATIVE (NEGATIVE)
--- NOTE | 2021-07-18 21:51 | NUR ---
Transfer report from [employer] OPERATORADRIAN Perez on 55 year old PT recently DC from Special care unit needs guardianship unable to care for self safely. 2 MD hold. Await admission from ER.
--- NOTE | 2021-07-19 05:00 | NUR ---
55 year old Female with recent DC from Special care unit who was found wandering & was returned to hospital for psych monitoring & DR Philip has recommended guardianship due to dementia. She has been cooperative but says she is sleepy. She is unable to verify home meds MR show she picked up klonipin 5 day supply & seroquel 400 mg for bedtime & enough 75 mg seroquel for TID. She has no RX with her on admission & says she has no family who helps her with medications. No agression noted. PT wanders out to mccray & in & & out of bathroom. Currently denies hallucinations. Remote camera monitoring.
--- NOTE | 2021-07-19 18:29 | NUR ---
PATIENT ON A 2 MD HOLD, AWAITING GUARDIANSHIP AND PLACEMENT. VERY PLEASANT TODAY AND COOPERATIVE WITH CARE. CALM AND REDIRECTABLE, PLEASANT AND CONVERSING WITH OTHER PATIENTS IN THE FELIX TODAY. VSS, ON RA. NO NEW CONCERNS THIS SHIFT.
[2021-07-20 05:00] LABS: BASOPHILS ABSOLUTE AUTO 0.05 K/mm3 (0.00-0.23); BASOPHILS PERCENT AUTO 1 % (0-2); EOSINOPHILS ABSOLUTE AUTO 0.18 K/mm3 (0.00-0.68); EOSINOPHILS PERCENT AUTO 2 % (0-6); Hematocrit 40.6 % (33.0-51.0); Hemoglobin 13.8 g/dL (11.5-16.0); IMMATURE GRAN ABSOLUTE AUTO 0.02 K/mm3 (0.00-0.10); IMMATURE GRAN PERCENT AUTO 0 % (0-1); LYMPHOCYTES ABSOLUTE AUTO 3.91 K/mm3 (0.84-5.20); LYMPHOCYTES PERCENT AUTO 48 % (21-46); MONOCYTES ABSOLUTE AUTO 0.66 K/mm3 (0.16-1.47); MONOCYTES PERCENT AUTO 8 % (4-13); Mean Corpuscular HGB 31.2 pg (26.0-34.0); Mean Corpuscular Volume 92 fL (80-100); Mean Platelet Volume 9.6 fL (9.1-12.4); NEUTROPHILS ABSOLUTE AUTO 3.39 K/mm3 (1.96-9.15); NEUTROPHILS PERCENT AUTO 41 % (41-73); Platelet Count 410 K/mm3 (150-400); RDW Coefficient Variation 13.7 % (11.7-14.2); RDW Standard Deviation 46.8 fL (35.1-46.3); Red Blood Cell Count 4.42 M/mm3 (3.80-5.20); White Blood Cell Count 8.21 K/mm3 (4.00-11.30)
--- NOTE | 2021-07-20 05:24 | NUR ---
SHIFT SUMMARY: PT IS A/OX3. SHE STILL SEEMS TO HAVE SOME PARANOIA AND STATED SHE HAD SOME VISUAL HALLUCINATIONS. 2 MD HOLD. INDEPENDENT IN ROOM. RA. NO TELE. SHE IS A DM II, BUT NO ACCUCHECKS. SHE WILL BE A PLACEMENT. NO OTHER ACUTE CHANGES TO REPORT THIS NOC SHIFT.
[2021-07-20 05:29] LABS: Anion Gap 7 mmol/L (6-16); Blood Urea Nitrogen 14 mg/dL (8-24); Bun/Creatinine Ratio 21.9 (12.0-20.0); CO2, Blood 25 mmol/L (21-32); Chloride, Blood 105 mmol/L (98-108); Creatinine, Blood 0.64 mg/dL (0.40-1.00); Glomerular Filtration Rate >60 (60-); Glucose, Blood 97 mg/dL (70-99); Potassium, Blood 4.1 mmol/L (3.5-5.5); Sodium, Blood 137 mmol/L (136-145)
--- NOTE | 2021-07-20 17:46 | NUR ---
PT HAS BEEN COOPERATIVE AND PLEASANT TODAY. DID REFUSE TO TAKE LOVENOX AND SPIROLATONE BUT TOOK ALL OF HER OTHER MEDS. SHE HAS SPENT MAJORITY OF THE DAY OUT OF HER ROOM SITTING IN IN HALLWAY BUT WOULD OCCASIONALLY GO BACK TO BED FOR NAPS. VSS. APPETITE GOOD. AMBULATING INDEPENDENTLY W/STEADY STRONG GAIT. WAITING ON PLACEMENT.
--- NOTE | 2021-07-21 04:32 | NUR ---
SHIFT SUMMARY: PT IS A/OX3. SHE IS A 2 MD HOLD. SHE IS ON RA, NO TELE, AND NO IV. SHE IS INDEPENDENT AND DID NOT HAVE ANY C/O THIS SHIFT. THERE ARE NO CHANGES TO REPORT AND WE'LL CONTINUE TO MONITOR.
[2021-07-21 05:00] LABS: Hematocrit 44.6 % (33.0-51.0); Hemoglobin 15.2 g/dL (11.5-16.0); Mean Corpuscular HGB 31.5 pg (26.0-34.0); Mean Corpuscular HGB Conc 34.1 g/dL (31.5-36.5); Mean Corpuscular Volume 93 fL (80-100); Mean Platelet Volume 9.2 fL (9.1-12.4); Platelet Count 404 K/mm3 (150-400); RDW Coefficient Variation 13.5 % (11.7-14.2); RDW Standard Deviation 46.3 fL (35.1-46.3); Red Blood Cell Count 4.82 M/mm3 (3.80-5.20); White Blood Cell Count 9.05 K/mm3 (4.00-11.30)
[2021-07-21 06:49] LABS: Alanine Aminotransfer (ALT/SGP 39 U/L (12-78); Albumin, Blood 3.9 g/dL (3.4-5.0); Albumin/Globulin Ratio 1.1 (0.8-1.8); Alk Phos 77 U/L (50-136); Anion Gap 5 mmol/L (6-16); Aspartate Aminotrans (AST/SGOT 9 U/L (12-37); Bilirubin, Total 0.8 mg/dL (0.1-1.0); Blood Urea Nitrogen 17 mg/dL (8-24); Bun/Creatinine Ratio 26.1 (12.0-20.0); CO2, Blood 26 mmol/L (21-32); Calcium, Blood 9.1 mg/dL (8.5-10.1); Chloride, Blood 107 mmol/L (98-108); Creatinine, Blood 0.65 mg/dL (0.40-1.00); Globulin, Blood 3.6 g/dL (2.2-4.0); Glomerular Filtration Rate >60 (60-); Glucose, Blood 116 mg/dL (70-99); Potassium, Blood 4.1 mmol/L (3.5-5.5); Sodium, Blood 138 mmol/L (136-145); Total Protein, Blood 7.5 g/dL (6.4-8.2)
--- NOTE | 2021-07-21 17:33 | NUR ---
SHIFT SUMMARY PT AXO TO SELF AND FOLLOWING DIRECTIONS. EXTREMELY FORGETFUL AND WANDERING HALLWAYS THROUGHOUT SHIFT. VSS. REFUSED SOME AM MEDICATIONS WELL, SEE MAR. NO ACUTE CHANGES THIS SHIFT. NO IV IN PLACE. BED IN LOW POSITION, CALL LIGHT WITHIN REACH. DENIES PAIN, SOB AND NV.
--- NOTE | 2021-07-22 05:13 | NUR ---
Patient is alert and oriented x1 to her self only. Patient has a steady gait and independent. She cannot recall past memories and answer questions with confusion. She has poor appetite. During the night, she would sleep then gets up and wanders outside the room. She talk about random topics like calling her mom and when is she leaving. Redirectable back to her room. Call light within reach. Bed in lowest position.
--- NOTE | 2021-07-22 19:49 | NUR ---
END OF SHIFT SUMMARY: PATIENT STEADY ON FEET AND INDEPENDENT IN THE ROOM. MEDICATED ONCE FOR A HEADACHE. PATIENT CALM AND COOPERATIVE IN GENERAL WITH CARE. PATIENT WITHDRAWN AND MILDLY IRRITABLE AT TIMES. PATIENT INSISTED THAT SHE BE DRIVEN HOME THIS AFTERNOON. THE EVENING PROGRESSED, PATIENT NO LONGER MADE THIS REQUEST. PATIENT HAS NOTICABLE STML SHE CANNOT REMEMBER MANY EVENTS/RESPONSES ABOUT 5 MINUTES PASSED. FOR EXAMPLE, PATIENT REQUESTED A SANDWICH. WHEN THE RN RETURNED, THE PATIENT ASKED "WHAT IS THIS FOR?".
--- NOTE | 2021-07-23 04:15 | NUR ---
Patient is alert and oriented x2 herself and date. She still cannot recall where she is and how she ended up here in the hospital. She is calm and redirectable. Able to take her medications, but only wants her anxiety and blood pressure medications. Gait steady and independent. She comes out of her room and repeatedly asking why she is still here. Complains of headache PRN Tylenol given. Call light within reach.
--- NOTE | 2021-07-23 19:47 | NUR ---
END OF SHIFT SUMMARY: PATIENT ALERT AND ORIENTED TO SELF AND STATE. PATIENT CALM THROUGHOUT THE SHIFT. PATIENT DEMANDING AT TIMES FOR SNACKS AND ATTENTION, BUT IS REDIRECTABLE. PATIENT STEADY ON FEET AND INDEPENDENT IN THE ROOM. PATIENT REPORTED ANXIETY THIS AFTERNOON, CRYING AT THE THOUGHT THAT SHE MAY HAVE "BEEN RUDE TO STAFF". SUPPORT, CALMING WORDS, AND PRN MEDICATIONS HELPED THE PATIENT. DISCUSSED LOW BPS WITH DR. DODSON. PATIENT ASYMPTOMATIC THROUGHOUT SHIFT. PATIENT DENIED DIZZINESS WITH AMBULATION OR STANDING UP FROM SITTING. PATIENT HAS AN EXCELLENT APPETITE FOR FOOD AND FLUIDS.
--- NOTE | 2021-07-24 06:10 | NUR ---
SUMMARY: PT ORIENTED TO SELF ONLY, IS INDEPENDENT IN ROOM/HALLS AND SPECIFIES NEEDS. SHE FREQUENTLY REQUESTS SNACKS/DRINKS BUT IS OFTEN DEMANDING W/THESE REQUESTS AND BECOMES FRUSTRATED WHEN NEEDS ARE NOT MET IMMEDIATELY. EDUCATION AND EXPLANATIONS PROVIDED THEN PT TYPICALLY CALMS AND IS UNDERSTANDING. SHE TENDS TO REFUSE MEDS BUT DOES TAKE SEROQUEL AT HS WHEN TOLD IT HELPS W/SLEEP. NO ACUTE CHANGES. SHE REMAINS HYPOTENSIVE W/SBP 90'S-100'S BUT ASYMPTOMATIC OF DISTRESS. VSS/AFEBRILE. 2MD HOLD REMAINS IN PLACE. PLACMENT AND GUARDIANSHIP PENDING. WCTM AND REPORT TO DAY RN.
--- NOTE | 2021-07-24 09:00 | NUR ---
PT PLEASANT THIS MORNING ALERT TO SELF. DOES NOT KNOW WHY HERE. WANTS TO GO HOME. CANNOT TELL ME DATES. SITUATION. PRESIDENT. H/R REG, NO MURMER NOTED. NO TELE. LUNGS CLEAR, RESP EASY,UNLABORED. ON R.A. BT X4 LAST BM YEST. PER PT VOIDS INDEPENDANT TO BATHROOM. UP WALKING IN ROOM AND HALLWAYS. OFTEN SITS ON FLOOR IN FELIX OR AT DOOR. BED IN LOW POSITION, CALL LITE IN REACH, CALLS OUT FOR NEEDS.
--- NOTE | 2021-07-24 18:32 | NUR ---
PT WAS HERE FOR RECENT ADMIT FOR WHICH I RECALL. SHE PRESENTS LESS CONFRONTATIONAL AND MORE COOPERATIVE TODAY. DENIES PAIN . HAS BEEN WALKING ABOUT ROOM AND HALLS REGULARLY TODAY. TALKING TO OTHER PATIENTS IN HALLS. DENIES REDNESS ANYWHERE ON BODY, AND REFUSED NYSTATIN/ABX CREAM. NO NEW CONCERNS NOTED. BED IN LOW POSITION, CALLITE IN REACH, WALKS TO [facility]ELIX FOR NEEDS.
--- NOTE | 2021-07-25 03:41 | NUR ---
SHIFT SUMMARY NO ACUTE CHANGES TO PT STATUS. PT HAS BEEN ASLEEP SINCE SHIFT CHANGE. SHE WOKE ONCE TO USE THE RESTROOM AND WENT RIGHT BACK TO SLEEP. CALL LIGHT IS WITHIN REACH AND WILL CONTINUE TO MONITOR.
--- NOTE | 2021-07-25 10:13 | NUR ---
PT AMBULATING IN THE HALLS. AND WAS BECOMING MORE AGGITATED D/T INTERACTIONS WITH OTHER CONFUSED PTS AMBULATING IN THE HALLS. PT WAS WILLING TO TAKE PRN SEROQUEL TO HELP WITH HER ANXIOUS THOUGHTS AND AGGITATED FEELINGS.
--- NOTE | 2021-07-25 17:33 | NUR ---
SHIFT SUMMARY- PT ALERT AND ORIENTED TO SELF AND SOMETIMES TO PERSON. SHE HAS A VERY GOOD APPETITE AND LIKES COFFEE. PT DID BECOME AGGITATED ONCE AND WAS MEDICATED PRN FOR IT. PT STATED THE AGGITATION WAS R/T THE OTHER PT IN THE FELIX THAT WAS "TOTALLY CRAZY, YOU CAN'T TALK TO CRAZY." THE PT TOOK HER MEDICATION PRN, HAD MULTIPLE SNACKS T/O THE DAY AND TOOK A DECENT NAP THIS AFTERNOON. PT HAS DECIDED SHE WANTED ANOTHER NAP AND IS LAYING QUIETLY IN HER ROOM AT THIS TIME. PT AMBULATES INDEPENDENTLY IN THE HALLS. PT IN BED WITH HER CALL LIGHT IN REACH NO S&S OF DISTRESS NOTED AT THIS TIME WILL CTM AND PASS ON TO NIGHT RN IN REPORT.
--- NOTE | 2021-07-26 03:43 | NUR ---
SHIFT SUMMARY: PT IS A/OX3. SHE WAS COOPERATIVE WITH CARE, EXCEPT FOR REFUSING MOST OF THE SCHEDULED MEDICATIONS. SHE IS INDEPENDENT IN ROOM & THE HALLWAY. SHE DID HAVE ANY COMPLAINTS AND WAS RESTFUL THE MAJORITY OF THIS SHIFT.
--- NOTE | 2021-07-26 17:11 | NUR ---
NO ACUTE CHANGES. PT IS INDEPENDENT AND ONLY CAME OUT INTO THE FELIX A COUPLE TIMES THIS SHIFT. PT WAS VERY HARD TO CONVINCE TO TAKE MORNING MEDICATION. PT JUST WANTS TO LAY ON HER BED AND NOT BE BOTHERED. SHE WILL CALL OUT IF SHE HEARS TALKING STATING IT IS TO LOUD, BUT DOESN'T ALWAYS WANT DOOR CLOSED. CALL LIGHT IS WITHIN REACH WILL CONTINUE TO MONITOR.
--- NOTE | 2021-07-27 05:23 | NUR ---
MANAGER NC SUMMARY ADMITTED FOR AGGRESSION. PT IS FULL CODE. SHE REPORTED ANXIETY AND "SKIN CRAWLING" AT THE START OF THE SHIFT. PT GIVEN PRN 75 MG OF SEROQUEL WITHOUT IMPROVEMENT. ORDER OBTAINED FOR ONE TIME DOSE OF 50 MG HYDROXYZINE AND PT HAS BEEN SLEEPING SINCE. PT REFUSED NIGHT MEDICATIONS. SHE WOKE UP ONCE WHEN ANOTHER PT WAS YELLING BUT WENT RIGHT BACK TO SLEEP. PT AGITATED. UPSET WITH CARE.
--- NOTE | 2021-07-27 17:26 | NUR ---
NO ACUTE CHANGES. PT AOX3 WITH CONFUSION. PT WAS A BIT IRRITABLE AT START OF SHIFT, BUT SEEMED TO SETTLE DOWN THE MORNING PROGRESSED. PT IS INDEPENDENT AND LIKES TO COME OUT OF HER ROOM AND DRINK COFFEE. PT RESTING ON HER BED AT THIS TIME WILL CONTINUE TO MONITOR. CALL LIGHT WITHIN REACH.
--- NOTE | 2021-07-28 05:24 | NUR ---
SHIFT SUMMARY 55 YR F ADMITTED ON 07/18/21 FOR AGGRESSION AND DANGER TO OTHERS. FULL CODE. NO ACUTE CHANGES THIS SHIFT. PT HAS LITERALLY SLEPT THE ENTIRE SHIFT AND ONLY WOKE UP LONG ENOUGH TO TAKE HER EVENING MEDS. THIS NURSE HAS HAD VERY LITTLE INTERACTION W/ PT THIS SHIFT.
--- NOTE | 2021-07-28 18:10 | NUR ---
SUMMARY PT SITTING UP IN BED EATING DINNER, PT WAS AGITATED AND IRRITABLE FIRST THING THIS AM, MED PER EMAR WITH GOOD RESULTS, PT UP INDEP IN THE ROOM AND THE HALLS, PT DENIES PAIN OR SOB, CARE MANAGENT WORKING ON A SAFE DISCHARGE PLAN, VSS, WILL CONT TO MONITOR
--- NOTE | 2021-07-29 05:07 | NUR ---
SHIFT SUMMARY 55 YR F ADMITTED ON 07/18/21 FOR AGRESSION AND DANGEROUS BEHAVIOR. FULL CODE. NO ACUTE CHANGES THIS SHIFT. PT SLEPT FOR MOST OF THIS SHIFT AND WAS A BIT AGITATED WHEN SHE WAS AWAKE. SHE STATED THAT SHE DID NOT LIKE NOISE IN THE HALLWAY. ONCE SHE SETTLED IN FOR THE NIGHT SHE SLEPT FOR THE REST OF THE SHIFT.
--- NOTE | 2021-07-29 14:48 | NUR ---
I HAVE REVIEWED IOS DEVELOPER DOCUMENTATION AND AGREE WITH ASSESSMENT
--- NOTE | 2021-07-29 16:56 | NUR ---
SHIFT SUMMARY PT AOX4 THROUGHOUT SHIFT. PLEASANT AND COOPERATIVE WITH CARE. NO COMPLAINTS OF PAIN. MEDICATED PER EMAR. PT ABLE TO VERBILIZE NEEDS IN APPROPRIATE MATTER. WALKS INDEPENDENTLY IN FELIX AND UNASSISTED IN ROOM. SCREEN VENT BINDER ASSISTING IN A SAFE DISCHARGE PLAN. VSS WILL CONTINUE TO MONITOR.
--- NOTE | 2021-07-29 17:10 | NUR ---
I AGREE WITH DISPATCHER REFINERY SHIFT SUMMARY
--- NOTE | 2021-07-30 04:22 | NUR ---
SHIFT SUMMARY 55 YR F ADMITTED ON 07/18/21 FOR ADVANCED DIMENTIA W/ AGGRESSIVE BEHAVIOR. FULL CODE. NO ACUTE CHANGES THIS SHIFT. PT HAS SLEPT FOR THE MAJORITY OF THIS SHIFT ONLY GETTING UP A COUPLE OF TIMES AND GOING RIGHT BACK TO BED. SHE HAS BEEN PLEASANT AND COOPERATIVE, AND IS INDEPENDANT IN HER ROOM.
--- NOTE | 2021-07-30 09:09 | NUR ---
pt laying in bed with eyes closed, responds/wakes easily, took her po meds then returned to sleep. confused, lungs are clear dim t/o, resp even and unlabored, no cough noted, on r/a, hrr, no edema noted, ppp+1, cap refill <3sec, vs stable, afebrile, btx4, abd flat soft nontender, voids without diff, skin c/w/d, maew, vane, call light in reach.
--- NOTE | 2021-07-30 13:34 | NUR ---
pt has been sleeping all morning, wakes easily. Dr. Corbin stopped in to see her. call light in reach.
--- NOTE | 2021-07-30 18:20 | NUR ---
pt has slept most of the day, she did get up once and sit in the mccray for a half and hr, then went back to bed, does wake up to eat meals, no further changes this shift. call light in reach.
--- NOTE | 2021-07-31 05:34 | NUR ---
SHIFT SUMMARY AOX2-SELF, PLACE. UNAWARE DATE OR SITUATION. FORGETFUL. VSS. APPEARED AGITATED @BEGINNING OF SHIFT REPEATING "I JUST NEED TO GO TO BED, I NEED SOME MEDS TO SLEEP" "I DONT LIKE ALL THE NOISE IN THE FELIX." MEDICATED c SCHEDULED SEROQUEL & PT ABLE TO REST SOUNDLY T/O NIGHT UNTIL AM VITALS TAKEN. SHE REPORTED NAUSEA & "UPSET" STOMACH WITH VITALS THIS AM, ATTEMPTED TO GIVEN TUMS & 7UP, PT REPORTED THEY TASTED GROSS, ENCOURAGED PT TO TRY- NO EMESIS. DENIES PAIN OR DYSPNEA. IND IN RM. AWAITING PLACEMENT. CALL LIGHT IN REACH. WILL MONITOR.
--- NOTE | 2021-07-31 09:54 | NUR ---
pt laying in bed with eyes closed, wakes easily, tells this nurse to get on with it for her medications so she can lay back down, a/o to self, flat affect, lungs are clear t/o, resp even and unlabored, no cough noted, hrr, no edema noted, ppp+2, cap refill <3sec, vs stable, afebrile, btx4, abd flat soft nontender, voids without diff, skin c/w/d, maew, vane, call light in reach.
--- NOTE | 2021-07-31 18:18 | NUR ---
pt has been sleeping the whole day, checked on her throughout and no needs, just wants to sleep, does wake up for meals, no acute changes. call light in reach.
--- NOTE | 2021-08-01 05:53 | NUR ---
SHIFT SUMMARY NO ACUTE CHANGES THIS SHIFT. AOX2-SELF, PLACE. WAS MORE PLEASENT & COOPERATIVE c CARE TONIGHT & LESS AGITATED WHEN QUESTIONS WERE ASKED. VSS. DENIES PAIN, N/V OR DYSPNEA. AWAITING PLACEMENT. CALL LIGHT IN REACH. WILL MONITOR.
--- NOTE | 2021-08-01 17:31 | NUR ---
SHIFT SUMMARY PT IS UP INDEPENDENT IN HER ROOM. SHE SLEPT LATE INTO THE MORNING AND HAS SPENT THE DAY SITTING OUTSIDE HER ROOM. SHE IS INTERACTING WITH THE OTHER PATIENTS IN THE HALLWAY. NO COMPLAINTS OF PAIN. COMPLIANT AND REDIRECTABLE. STILL AWAITING GAURDIANSHIP. WILL CONTINUE TO MONITOR.
--- NOTE | 2021-08-02 06:03 | NUR ---
SHIFT SUMMARY PT IS A 55 Y/O FEMALE, ADMITTED FOR AGGRESSION. SHE IS A&O X 1-2, INDEPENDENT AND WANDERS IN THE HALLS OCCASIONALLY WHILE AWAKE. PT WAS WITHDRAWN BUT COOPERATIVE WITH CARE DURING THIS SHIFT. NO C/O ACUTE PAIN, NAUSEA OR SOB. PT SLEPT WELL THROUGH THE NIGHT. VITAL SIGNS STABLE. NO ACUTE CHANGES IN PT CONDITION NOTED DURING THE NIGHT. WILL CONTINUE TO MONITOR AND TREAT PER EMAR UNTIL HAND OFF TO DAY SHIFT RN.
--- NOTE | 2021-08-02 18:43 | NUR ---
SHIFT SUMMARY PT HAS SPENT MOST OF THE DAY IN HER ROOM SLEEPING THE PT IN 53 REALLY BOTHERS HER. THEY YELLED AT EACH OTHER A BIT IN THE HALLWAYS UNTIL SHE DECIDED TO RETURN TO HER ROOM. SHE HAS BEEN COMPLIANT AND REDIRECTABLE EXCEPT FOR THIS MORNING WHEN I ASKED TO GIVE HER THE LOVENOX AND SHE SAID "IF YOU POKE ME WITH THAT YOUR'E GOING TO GET SLAPPED." MED NOTED REFUSED. WILL CONTINUE TO MONITOR.
--- NOTE | 2021-08-03 04:04 | NUR ---
GRINDER MACHINE SETTER SUMMARY SOMEWHAT AGITATED WITH OTHER PTS AT HS, VOICED ANGER, DIFFICULT TO REDIRECT. FINALLY WHEN OTHER PTS QUIETED DOWN, SHE BECAME MORE COMPLIANT WITH TAKING MEDS AND ALLOWING ASSESSMENT. HAS BEEN RESTING QUIETLY WITH FEW INTERRUPTIONS SINCE. CALL LIGHT IN REACH.
--- NOTE | 2021-08-03 18:26 | NUR ---
SHIFT SUMMARY: HYPOTENSIVE 95/81 THIS MORNING, 89/66 THIS AFTERNOON WITH RE-CHECK AFTER ONE HOUR 81/50. DR. WILDE NOTIFIED, MIDODRINE 5 MG ORDERED NOW. NO COMPLAINTS. SLEPT MOST OF THE MORNING. NO BEHAVIORS REQUIRING PRN MEDICATION. DENIED PAIN. TOLERATING PO INTAKE, GOOD APPETITE. GAIT STEADY, AMBULATING IN HALLWAY PERIODICALLY.
--- NOTE | 2021-08-04 03:33 | NUR ---
SHIFT SUMMARY: A/O X3, PATIENT INDEPENDENT AMBULATION AND CARE OF ADL'S. INCREASED RESTLESSNESS TONIGHT, WHEN ROUNDING PATIENT TYPICALLY AWAKE OR AWAKES VERY EASILY. OCCASSIONAL INCREASED IRRITABLITY TO INCREASING EXTERNAL STIMULI. PATIENT COMMUNICATES CLEARLY NEEDS, CALLS APPROPRIATELY AND FOLLOWS COMMANDS.
--- NOTE | 2021-08-04 18:44 | NUR ---
PATIENT WAS PLEASANT TODAY. SHE DISPLAYED A HELPFUL CHARACTER, OFFERING ASSISTANCE TO HER PEERS. PATIENT REPORTS NO CONCERNS. COOPERATIVE AND TOOK MEDICATION PRESCRIBED.
--- NOTE | 2021-08-05 04:28 | NUR ---
SHIFT SUMMARY: PATIENT A/O X 2-3. PATIENT REMAINED CALM AND COOPERATIVE THROUGHOUT SHIFT. INDEPENDENT AMBULATION AND CARE FOR ADL'S. NO REPORTS OF PAIN. PATIENT SLEPT WELL THROUGHOUT THE NIGHT.
--- NOTE | 2021-08-05 16:20 | NUR ---
SHIFT SUMMARY PATIENT IS ALERT AND ORIENTED X2-3. PATIENT HAS HAD NO ACUTE EVENTS. PATIENT HAS HAD ANXIETY ONCE THIS SHIFT, MEDICATED PER EMAR. VITAL SIGNS REVIEWED. PATIENT HAS HAD NO COMPLAINTS OF PAIN, SOB, NAUSEA OR VOMITTING THIS SHIFT. PATIENT IS IND IN ROOM AND HALLWAY. PATIENT HAS BEEN PLEASENT AND COOPERATIVE THIS SHIFT. BED IN LOCKED AND LOWEST POSITION. CALL LIGHT IN PLACE. WILL MONITOR UNTIL SHIFT CHANGE.
--- NOTE | 2021-08-06 04:49 | NUR ---
SHIFT SUMMARY: PT A/O X 3. OCCASIONAL INCREASED AGGITATION, BEGINNING OF SHIFT COMPLAINTS OF SHOULDER AND BACK ACHE- RESOLVED WITH PRN ACETAMINOPHEN. PATIENT INDEPENDENT AMBULATION & ADL'S. SLEPT WELL AFTER PAIN RESOLVED.
--- NOTE | 2021-08-06 16:07 | NUR ---
SHIFT SUMMARY PT AxOx3 WITH INTERM CONFUSION. COOPERATIVE WITH CARE. PT SLEEPING MOST OF THIS DAY SHIFT. PT DENIES PAIN/ANXIETY THIS SHIFT. VITALS REVIEWED. PT CURRENTLY RESTING IN BED WITH CALL LIGHT IN REACH. CURRENT PLAN PENDING PLACEMENT.
--- NOTE | 2021-08-07 04:43 | NUR ---
SHIFT SUMMARY: Patient slept throughout the night, A&Ox3, independent in the room, VSS on RA, denies pain, minimal requests noted this shift
--- NOTE | 2021-08-07 10:00 | NUR ---
PT CLAM AND COOPERATIVE. A/O X3. DENIES PAIN. VERY TIRED THIS MORNING AND WANTS TO SLEEP. H/R REGUALR IN THE 70'S. NO MURMUR NOTED. NO TELE. LUNG SOUNDS CLEAR BILATERALLY. BREATHING IS EASY AND UNLABORED. PER PATIENT LAST BOWEL MOVEMENT WAS THIS MORNING. AMBULATES TO RESTROOM INDEPENDENTLY. BED IN LOW POSITION, CALL LIGHT IN REACH, CALLS APPROPRIATLY.
--- NOTE | 2021-08-07 17:51 | NUR ---
PT COOPERATIVE AND CALM. A/O X3. DENIES PAIN. HAS BEEN GIVEN MULTIPLE SNACKS AND DRINKS THROUGHOUT THE SHIFT. H/R IN 80'S. NO MURMUR OR TELE. ON ROOM AIR. LUNGS CLEAR BILATERALLY. BREATHING IS UNLABORED AND EASY. BOWEL SOUNDS ACTIVE. PT USES RESTROOM INDEPENDENTLY. HAS BEEN TALKING WITH OTHER PATIENTS AND PACING THE HALLWAY. BED IN LOW POSITION, CALL LIGHT IN REACH, CALLS APPROPRIATLY.
--- NOTE | 2021-08-08 05:09 | NUR ---
SHIFT SUMMARY PATIENT SLEPT FOR MOST OF THE NIGHT, UP WALKING THE HALLS OCCASIONALLY, PLEASANT AND COOPERATIVE, A&OX2, MULTIPLE SNACKS PROVIDED PER PATIENT REQUEST, DENIES PAIN AND SHORTNESS OF BREATH, VSS ON RA
--- NOTE | 2021-08-08 18:33 | NUR ---
SUMMARY- PT A/O X3, INDEPENDANT AMBULATES IN THE FELIX STEADY ON FEET. TOLERATING FOOD AND FLUIDS. AWAITING PLACEMENT. PT IS CALM, PLEASANT AND EASILY DIRECTABLE- AWAITING PLACEMENT
--- NOTE | 2021-08-09 06:08 | NUR ---
SHIFT SUMMARY PT A/O X 3, INDPEPENDENT IN ROOM AND HALLWAY, JADE PO WELL, ATE SEVERAL SNACKS DURING THE SHIFT. PT CALM, COOPERATIVE, RESTED WELL. VSS, ANTICIPATE D/C WHEN PLACEMENT DETERMINED.
--- NOTE | 2021-08-09 16:21 | NUR ---
SHIFT SUMMARY PATIENT IS ALERT AND ORIENTED X3. PATIENT HAS BEEN IND IN ROOM AND HALLWAY. PATIENT CONTINUES TO ASK FOR SNACKS CONTINUOUSLY. PATIENTS BLOOD PRESSURE CONTINUES TO BE SOFT, MEDICATED PER EMAR. PATIENT IS PLEASENT AND COOPERATIVE WITH CARE. PATIENT HAS HAD NO ACUTE EVENTS THIS SHIFT. VITAL SIGNS ARE REVIEWED. BED IN LOCKED AND LOWEST POSITION. CALL LIGHT IN PLACE. WILL MONITOR UNTIL SHIFT CHANGE.
--- NOTE | 2021-08-10 06:08 | NUR ---
SHIFT SUMMARY PT A/O X 4, HAS BEEN CALM, COOPERATIVE, PLEASANT DURING THE SHIFT. PT COMPLIANT WITH TAKING SCHEDULED MEDICATIONS, UP INDEPENDENTLY IN ROOM, VSS. ANTICIPATE D/C WHEN GUARDIANSHIP AND PLACEMENT DETERMINED.
--- NOTE | 2021-08-10 16:56 | NUR ---
SHIFT SUMMARY PATIENT IS ALERT AND ORIENTED 2-3. PATIENT HAS HAD NO COMPLAINTS OF SOB, PAIN, NAUSEA, OR VOMITTING THIS SHIFT. PATIENT HAS HAD NO ACUTE EVENTS THIS SHIFT. VITAL SIGNS REVIEWED. PATIENT HAS BEEN PLEASENT AND COOPERATIVE WITH CARE. PATIENT HAS BEEN TALKATIVE WITH STAFF AND RESTING MOST OF THE DAY. BED IN LOCKED AND LOWEST POSITION. CALL LIGHT IN PLACE. WILL MONITOR UNTIL SHIFT CHANGE.
--- NOTE | 2021-08-11 07:17 | NUR ---
SHIFT SUMMARY - NO ACUTE CHANGES. PT HAD AN UNEVENTFUL NIGHT. PT SLEPT FOR APPX 8 HOURS LAST NIGHT. PT REQUESTS FOOD/FLUIDS OFTEN - PROVIDED. PT IS AWAITING PLACEMENT. REPORT GIVEN TO DAY SHIFT.
--- NOTE | 2021-08-11 17:16 | NUR ---
SHIFT SUMMARY PATIENT DENIES PAIN, NAUSEA, AND SHORTNESS OF BREATH. PATIENT IS INDEPENDENT IN ROOM. PATIENT SLEPT ON AND OFF TODAY. PATIENT DID COME SIT IN HALLWAY AND TALK WITH STAFF AND OTHER PATIENTS. PATIENT WAS VERY PLEASANT TODAY. PATIENT IS AWAITING GUARDIANSHIP THEN PLACEMENT. PATIENT IS EATING AND DRINKING WELL. PATIENT IS PLEASANT AND COOPERATIVE WITH CARE.
--- NOTE | 2021-08-12 04:06 | NUR ---
BATTERY ASSEMBLER DRY CELL SUMMARY PT AWAITING GUARDIANSHIP. SHE HAS BEEN PLEASANT AND IS ALERT AND ORIENTED TO SELF, TIME, AND SURROUNDINGS. PT IS COOPERATIVE WITH MEDICATIONS AT NIGHT AND HAS BEEN RESTING IN HER BED. SHE IS INDEPENDENT AND IS FREQUENTLY ASKING FOR FOOD. PT HAS NOT BEEN AGGRESSIVE TO STAFF.
--- NOTE | 2021-08-12 17:54 | NUR ---
SHIFT SUMMARY PATIENT DENIES PAIN, NAUSEA, AND SHORTNESS OF BREATH. PATIENT IS INDEPENDENT IN ROOM. PATIENT HAS BEEN INSATIABLE WITH FOOD, TOOK FOOD FROM OTHER PATIENTS MULTIPLE TIMES, EVEN AFTER BEING ASKED NOT TO. PATIENT GIVEN MULTIPLE SNACKS. PATIENT STILL ATTEMPTING TO TAKE FOOD. PATIENT SLEPT ON AND OFF. PATIENT MOSTLY PLEASANT AND COOPERATIVE WITH CARE.
--- NOTE | 2021-08-13 04:36 | NUR ---
SHIFT SUMMARY: PT IS A/OX3. SHE IS INDEPENDENT IN THE ROOM/HALLWAY. SHE IS ABLE TO VOICE WHAT HER NEEDS ARE. THERE ARE NO ACUTE CHANGES TO REPORT THIS SHIFT. WE'LL CONTINUE TO MONITOR THE REST OF THE SHIFT.
--- NOTE | 2021-08-13 18:28 | NUR ---
SHIFT SUMMARY PATIENT DENIES PAIN, NAUSEA, AND SHORTNESS OF BREATH. PATIENT INDEPENDENT IN ROOM. PATIENT STILL REQUESTING MULTIPLE SNACKS, STATES SHE IS STARVING. ORDERED DOUBLE PORTIONS FOR EACH MEAL. PATIENT SHOWED INCREASED ANXIETY AND AGITATED THIS AFTERNOON. PATIENT MEDICATED WITH PRN MEDS. PATIENT SLEPT ON AND OFF TODAY. PATIENT IS PLEASANT AND COOPERATIVE WITH CARE.
--- NOTE | 2021-08-14 04:44 | NUR ---
SHIFT SUMMARY: PT IS A/OX3. INDEPENDENT IN ROOM AND WALKING THE HALLWAYS. OVER THE LAST FEW SHIFTS SHE HAS BEEN FREQUENTLY REQUESTING SNACKS BETWEEN MEALS. OTHER THAN ASKING FOR FOOD THERE ARE NO OTHER CHANGES TO REPORT.
--- NOTE | 2021-08-14 19:00 | NUR ---
SHIFT SUMMARY PT AXO, COOPERATIVE WITH CARE THOUGH WITHDRAWN. NO ACUTE CHANGES THIS SHIFT. LOW BP NOTED, MEDICATED PER EMAR. PT UP AD [place] WITH STEADY GAIT. BE IN LOW POSITION, CALL LIGHT WITHIN REACH.
--- NOTE | 2021-08-15 06:39 | NUR ---
SHIFT SUMMARY: NO ACUTE CHANGES, VSS, NO REPORTS OF PAIN OR DISCOMFORT. HS SNACK WAS GIVEN. PATIENT SLEPT WELL THIS SHIFT AND WAS CALM AND COOPERATIVE WITH CARE.
--- NOTE | 2021-08-15 17:33 | NUR ---
END OF SHIFT SUMMARY No changes to patient status this shift. Soft BPs, Midodrine given TID this shift. Pt slept all day, awake for meals. Vitals stable.
--- NOTE | 2021-08-16 07:35 | NUR ---
SHIFT SUMMARY: PATIENT HAS NO COMPLIANTS OF PAIN. BP CAN BE HYPOTENSIVE AT TIMES BUT ASYMPTOMATIC. WALKS OUT TO THE FELIX FREQUENTLY AND SITS IN A CHAIR TO TALK WITH STAFF AND OTHER PATIENTS. APPETITE IS GOOD.
--- NOTE | 2021-08-16 18:14 | NUR ---
SHIFT SUMMARY MS ANDERSON SLEPT A LOT OF THIS MORNING, THIS AFTERNOON SHE HAS SPENT A LOT OF TIME SITTING IN A CHAIR IN THE FELIX AND TALKING WITH STAFF AND PATIENTS. SHE HAS BEEN CALM AND COOPERATIVE. SHE TOOK HER MIDIDRINE FOR SOFT BLOOD PRESSURE. NO C/O PAIN. GOOD APPETITE.
--- NOTE | 2021-08-17 05:52 | NUR ---
SHIFT SUMMARY: PATIENT IS MORE INTERACTIVE WITH OTHER PATIENT ON THE UNIT THIS SHIFT. PLEASANT AND COOPERATIVE WITH STAFF AND OTHER PATIENTS. WAKES IN THE NIGHT AND REQUEST A SNACK THEN BACK TO SLEEP. NO ACUTE CHANGES.
--- NOTE | 2021-08-17 16:45 | NUR ---
SHIFT SUMMARY: NO EVENTS. NO BEHAVIORS REQUIRING PRN MEDICATIONS. AMBULATING IN HALLWAY, GAIT IS STEADY. REFUSED SHOWER/BATH, BUT LINENS WERE CHANGED. HUNGRY ALL SHIFT, ASKED FOR SNACKS BETWEEN MEALS. DENIED PAIN. NAPPED OFF AND ON. AWAITING PLACEMENT.
--- NOTE | 2021-08-18 07:17 | NUR ---
SHIFT SUMMARY: PATIENT HAS NO ACUTE CHANGES. BP CONTINUE TO BE HYPOTENSIVE BUT ASYMPTOMATIC. SLEPT WELL THIS SHIFT, REQESTED MULTIPLE SNACKS AND WAS COOPERATIVE WITH STAFF.
--- NOTE | 2021-08-18 17:28 | NUR ---
SHIFT SUMMARY 55 Y F ADMITTED FOR AGGRESSION AN DANGER TO OTHERS AND SELF. PT IS A&O 2-3 BUT DOES HAVE MOMENTS OF CONFUSION AND POOR JUDGMENT. D/C PLANNING IS PENDING GUARDIANSHIP AND PLACEMENT. PT HAS SLEPT MOST OF THE DAY AND GOTTEN UP IND IN ROOM FOR ADL'S AND MEALS. PT DENIES ANY PAIN AND HAS BEEN PLEASANT, COOPERATIVE AND APPROPRIATE WITH HER INTERACTIONS WITH NURSING STAFF TODAY. NO OTHER CHANGES TO REPORT THIS SHIFT.
--- NOTE | 2021-08-19 06:35 | NUR ---
SHIFT SUMMARY: NO ACUTE CHANGES THIS SHIFT. VSS, GOOD APPETITE, PATIENT DOES REQUEST NUMEROUS SNACKS. PATIENT WAS WOKEN NUMEROUS TIMES DURING THE NIGHT BY ANOTHER PATIENT LOUDLY TAKING IN THE FELIX. DOOR WAS CLOSED AND PATIENT WAS ABLE TO SLEEP WITHOUT INTERUPTION.
--- NOTE | 2021-08-19 17:34 | NUR ---
SHIFT SUMMARY NO ACUTE CHANGES PER SHIFT. SHE HAS BEEN SITTING IN THE FELIX TALKING WITH STAFF AND RESTING IN HER ROOM. SHE IS FREE OF PAIN, SOB, AND HAS BEEN COOPERATIVE AND CALM THIS SHIFT. WILL CONTINUE TO MONITOR.
--- NOTE | 2021-08-19 19:34 | NUR ---
UP IN HALLWAY. OCCASIONAL PACING. QUIET UNLESS SPOKEN TO
--- NOTE | 2021-08-20 03:32 | NUR ---
ECOLOGIST SUMMARY AT SHIFT COMMENCE WAS UP WANDERING THE HALLWAY. QUIET UNLESS SPOKEN TO. COMPLIANT TO STAFF REQUESTS. NO NOTED AGGRESSIV EBEHAVIOR OF THIS WRITING. CURRENTLY RESTING QUIETLY WITHOUT S/S ACUTE DISTRESS. CALL LIGHT IN REACH
--- NOTE | 2021-08-20 16:27 | NUR ---
DAY SHIFT SUMMARY 55 YR OLD FEMALE PT DEMENTIA. PT IS ON RA AND INDEPENDENT IN ROOM. A/O X2-3, CONFUSION AND FORGETFULNESS. ORIENTED TO SELF AND PLACE, ABLE TO FOLLOW DIRECTIONS. NO IV. CALL LIGHT WITHIN REACH OF PT. NO ACUTE CHANGES THIS SHIFT.
--- NOTE | 2021-08-20 22:24 | NUR ---
PT appears to be resting quietly after HS medication. She vebalized she wanted to be knocked out when oral meds given. Explained that antichol rx was not going to be sedating. on seroquel 500 mg po at HS for behaviors with helpful effect. No agression, can be loud but redirects.
--- NOTE | 2021-08-21 06:09 | NUR ---
PT continues to require secure environment due to wandering unsafe behavior & dementia. She is able to ambulate indep & able tocommunicate. Appetite good. No agressive behavior. cooperative with meds
--- NOTE | 2021-08-21 17:31 | NUR ---
DAY SHIFT SUMMARY 55 YR OLD FEMALE WITH AGGRESSIVE BEHAVIOR. ON REGULAR DIET AND RA. INDEPENDENT IN ROOM AND IN HALLWAY. NO IV ORDER. WAITING GUARDIANSHIP AND PLACEMENT. NO ACUTE CHANGES THIS SHIFT, CALL LIGHT WITHIN REACH.
--- NOTE | 2021-08-22 06:41 | NUR ---
PT CONTINUES TO AWAIT PLACEMENT IN MEMORY CARE ENVIROMENT. sHE IS INDEP IN SECURE UNIT WITH NO AGRESSIVE BEHAVIOR.
--- NOTE | 2021-08-22 18:29 | NUR ---
SHIFT SUMMARY: PT. HAS BEEN SLEEPING ON AND OFF MOST OF THE DAY. SHE IS A&OX4 AND RESPONDS APPROPRIATLEY IN CONVERSTATIONS. AFTER LUNCH PT. REQUESTED SNACKS NEARLY EVERY THIRTY MUNITES. HER HUNGAR STAYED UNTOUCHED, EVEN W/ MEALS. PT. LIKES TO BRING A CHAIR OUT INTO THE FELIX AND SIT W/ THE STAFF. SHE IS VERY PLEASENT AND COOPERATIVE. PT. VITALS ARE STABLE, BUT HER BP HAS BEEN LOW. MIDODRINE GIVEN TWICE TODAY BECAUSE OF IT. PARAMATERS FOR THE MED ARE TO HOLD IF SBP IS OVER 120 (HELD ONCE TODAY). PT. AMBULATES IND. AND TAKES MEDS WHOLE. SHE HAS NO COMPLAINTS AT THIS TIME.
--- NOTE | 2021-08-23 03:58 | NUR ---
56 year old Female admitted with unsafe behaviors related to dementia [facility] She has no agressive or extreme behaviors. She is cooperative with medications & indep on special care secured unit.
--- NOTE | 2021-08-23 18:15 | NUR ---
SHIFT SUMMARY PT ALERT AND COOPERATIVE WITH CARE. PT IS A/O X3 WITH PERIODS OF CONFUSION. SHE PREFERS TO SIT IN THE FELIX AND REQUESTS SNACKS OFTEN. MEDICATED FOR HYPOTENSION. AWAITING PLACEMENT. WILL REPORT TO CARLOZ RN.
--- NOTE | 2021-08-24 05:15 | NUR ---
ENTERPRISE SECURITY ARCHITECT SUMMARY PT AWAITING GUARDIANSHIP AND PLACEMENT. SHE IS PLEASANT AND COOPERATIVE, FOLLOWS DIRECTIONS. PT REQUESTING MULTIPLE SNACKS THROUGHOUT THE NIGHT AND SOMEWHAT AGITATED WHEN WAKING UP. PT IS ALERT AND ORIENTED X2-3 WITH INTERMITTENT CONFUSION.
--- NOTE | 2021-08-24 16:45 | NUR ---
PT WAS ASLEEP IN THE BEGINNING OF THE SHIFT. PT TOOK MORNING MEDICATIONS AND ASSESSMENTS. PT WOKE UP TO EAT ALL MEALS THROUGHOUT SHIFT. PT EXPRESSES THAT SHE IS STILL HUNGRY IN BETWEEN MEALS. PT OCCASIONALLY CAME OUT OF HER ROOM BUT KEPT TO HERSELF THROUGHOUT THE SHIFT. PT WAS PLEASANT AND COMPLIANT THROUGHOUT THE SHIFT. PT RESTING IN BED WITH CALL LIGHT WITHIN REACH.
--- NOTE | 2021-08-24 16:53 | NUR ---
SHIFT SUMMARY PT SLEEPING AT START OF SHIFT AND CONTINUED TO SLEEP UNTIL AFTER BREAKFAST. PT WOKE FOR CARE, BUT DID NOT WANT TO BE BOTHERED EARLY. PT INDEPENDENT IN RM AND OUT TO FELIX WHEN AWAKE, SITTING IN CHAIR UNTIL LUNCH ARRIVED. PT BACK TO RM TO EAT LUNCH ALONG WITH SEVERAL OTHER ITEMS REQUESTED FROM THE PANTRY. NO S/SX OF DISTRESS NOTED OR REPORTED. PT CONTINUES TO WAIT FOR PLACEMENT/GUARDIANSHIP TO D/C. DENIES FURTHER NEEDS AT THIS TIME. CALL LT IN REACH.
--- NOTE | 2021-08-25 05:17 | NUR ---
SHIFT SUMMARY NO ACUTE CHANGES THIS SHIFT. AOX2. FORGETFUL & CONFUSED. ABLE TO FOLLOW SIMPLE DIRECTIONS. PLEASENT & COOPERATIVE c CARE. VSS. REPORTS BODY ACHES ALLOVER, MEDICATED 1X c TYLENOL & PT ABLE TO REST WELL. DENIES N/V OR DYSPNEA. PENDING PLACEMENT. ABLE TO MAKE NEEDS KNOWN. CALL LIGHT IN REACH.
--- NOTE | 2021-08-25 17:07 | NUR ---
SHIFT SUMMARY PT LAYING IN BED MOST OF THE DAY. LATE THIS AFTERNOON SHE HAS GOTTEN UP AND SITTING IN HALLWAY REPORTING BEING HUNGRY ABOUT EVERY HALF HOUR DESPITE SNACKS GIVEN. DENIES FEELING DIZZY OR LIGHTHEADED WHEN SHE GETS UP.
--- NOTE | 2021-08-26 04:30 | NUR ---
SHIFT SUMMARY NO ACUTE CHANGES THIS SHIFT. AOX2-SELF, PLACE, FOLLOWING DIRECTIONS. VSS. DENIES PAIN, N/V OR DYSPNEA. UP IND IN HALLS & RM. PENDING PLACEMENT. CALL LIGHT IN REACH & PT ABLE TO MAKE NEEDS KNOWN.
--- NOTE | 2021-08-26 17:34 | NUR ---
SHIFT SUMMARY PT INDEPENDENT IN ROOM. REPORTS BEING HUNGRY OFTEN TODAY. FORGETS SHE HAS HAD A SNACK. WHEN REMINDED SHE SAYS "WELL I'M STILL HUNGRY". SHOWER TAKEN THIS AFTERNOON.
--- NOTE | 2021-08-27 05:07 | NUR ---
SHIFT SUMMARY PATIENT REMAINS A&OX3, INDEPENDENT, WALKING THE HALLS, VSS ON RA, REPORTING CHRONIC BACK PAIN, PRN TYLENOL ADMINISTERED, SNACKS PROVIDED PER PATIENT REQUEST, PATIENT ABLE TO DO ALL PERSONAL CARES INDEPENDENTLY, NO FURTHER REQUESTS NOTED AT THIS TIME
--- NOTE | 2021-08-27 16:12 | NUR ---
SHIFT SUMMARY- PT A&O X3. PT CALM AND SLEEPING FOR MOST OF SHIFT. PT IN CHAIR X2. PT APPETITE ADEQUATE. PT COMPLIANT WITH MEDICATIONS AND CARE NEEDS. CALL LIGHT WITH IN REACH.
--- NOTE | 2021-08-27 17:38 | NUR ---
THIS CRIMINAL PSYCHOLOGIST HAS REVIEWED ADRIAN RENEE'S ASSESSMENTS AND NOTES AND AGREE WITH THEM.
--- NOTE | 2021-08-28 04:51 | NUR ---
SHIFT SUMMARY PATIENT RESTED THROUGHOUT THE NIGHT, REMAINS A&O X3, REPORTING CHRONIC PAIN TO HER NECK AND BACK, PRN TYLENOL ADMINISTERED, PATIENT UP WALKING THE HALLS INDEPENDENTLY, VSS ON RA, AWAITING PLACEMENT
--- NOTE | 2021-08-28 17:24 | NUR ---
SHIFT SUMMARY- PT SLEEPING THROUGHOUT MOST OF SHIFT. PT WAKENS FOR MEALS AND MEDS. PT COMPLIANT WITH CARE, NEEDED. PT INDEPENDANT IN ROOM. PT WITH CALL LIGHT IN REACH.
--- NOTE | 2021-08-28 18:13 | NUR ---
THIS CRIMINAL RECORDS TECHNICIAN HAS REVIEWED ADRIAN RENEE'S NOTES AND ASSESSMENTS AND AGREES WITH THEM.
--- NOTE | 2021-08-29 05:14 | NUR ---
SHIFT SUMMARY PATIENT RESTED ON AND OFF THROUGHOUT THE NIGHT, A&O X3, UP INDEPENDENTLY IN THE HALLS, VSS ON RA, REPORTING PAIN TO NECK AND BACK, PRN TYLENOL ADMINISTERED, FREQUENT SNACKS PROVIDED PER PATIENT REQUEST
--- NOTE | 2021-08-29 14:51 | NUR ---
offered shower x2 today. refused. states wants to sleep.
--- NOTE | 2021-08-29 16:17 | NUR ---
SHIFT SUMMARY- PT ASLEEP THOUGHOUT MOST OF MORNING SHIFT. PT AXO X2. PT SHOWERED AND CHANGED CLOTHES. PT APPETITE EXCELLENT. PT SOCIAL OFTEN WHEN AWAKE. PT COMPLIANT WITH CARE PROVIDED. PT INDEPENDANT IN ROOM. PT RESTING WITH CALL LIGHT IN ROOM
--- NOTE | 2021-08-30 05:34 | NUR ---
SHIFT SUMMARY NOC: NO ADVERSE BEHAVIOR OR EVENTS [id number] SHIFT. PT HAS GOOD APPETITE ASKING FOR FOOD FREQUENTLY. PT HAS BEEN COMPLIANT WITH CARE. REPORTS NECK PAIN THAT IS CONTROLLED WITH TYLENOL. PT HAS BEEN SLEEPING MAJORITY OF SHIFT.
--- NOTE | 2021-08-30 17:36 | NUR ---
SHIFT SUMMARY PT SLEEPING MOST OF THE DAY. HAS CAME INTO HALLWAY A FEW TIMES SAYING SHE IS HUNGRY BUT THEN GOES BACK TO HER ROOM. NO REPORTS OF PAIN OR DISTRESS. AWAITING GUARDIANSHIP FOR PLACEMENT.
--- NOTE | 2021-08-31 05:20 | NUR ---
SHIFT SUMMARY PT IS A 56 Y/O FEMALE, ADMITTED FOR AGGRESSION. SHE IS A&O X 2, INDEPENDENT AND WANDERS IN THE HALLS AT TIMES. PT STATES SHE IS HUNGRY AT ALL TIMES WHILE AWAKE, EVEN JUST AFTER EATING FOOD. NO C/O NAUSEA, PAIN OR SOB. BP WAS LOW AT HS AT 89/58. VITAL SIGNS OTHERWISE STABLE. NO OTHER ACUTE CHANGES IN PT CONDITION NOTED DURING THE NIGHT. WILL CONTINUE TO MONITOR AND TREAT PER EMAR UNTIL HAND OFF TO DAY SHIFT RN.
--- NOTE | 2021-08-31 16:18 | NUR ---
SHIFT SUMMARY- PT A/OX2, PERSON AND PLACE. PT UP AMBULATING INDEP IN ROOM AND IN HALLS. PT PLEASANT AND COOPERATIVE WITH CARE. NO COMPLAINTS T/O THE DAY.
--- NOTE | 2021-09-01 00:01 | NUR ---
PATIENT WIDE AWAKE THIS EVENING. UP IN HALLS ASKING ALL STAFF FOR FOOD. STATES SHE'S "STARVING". UNABLE TO CONVINCE HER TO TRY TO SIT OR LAY DOWN OR RELAX. 500 MG SEROQUEL GIVEN AT HS PER ORDER. NO AGGRESSIVENESS NOTED
--- NOTE | 2021-09-01 04:21 | NUR ---
patient quite active earlier in shift, pacing back and forth and asking staff for food. No complaints of discomfort except for "hunger pain". Megan finally fell asleep around 0100 and slept through the night. Awaiting placement.
--- NOTE | 2021-09-01 13:12 | NUR ---
AOX2, CAN MAKE HER NEEDS KNOWN. PT INDEPENDENT, PLEASANT, AND COOPERATIVE WITH MEDS. CONSISTANTLY STATES THAT SHE IS HUNGRY, EVEN AFTER EATING MEALS; SNACKS AND SANDWICHES GIVEN OFTEN. NO ADVERSE BEHAVIOR OR EVENTS.
--- NOTE | 2021-09-02 05:05 | NUR ---
PATIENT ALERT AND COOPERATIVE WITH CARE OVERNIGHT. STILL REQUESTING LOTS OF FOOD. NO COMPLAINTS OF DISCOMFORT. NO SIGNS OF ANXIETY OR AGGRESSION.
--- NOTE | 2021-09-02 14:01 | NUR ---
AOX2, CAN MAKE HER NEEDS KNOWN. PATIENT IS INDEPENDENT, PLEASENT, AND COOPERATIVE WITH MEDS. PT HAS A BIG APPETITE, GIVEN SNACKS AND SANDWICHES OFTEN. NO ADVERSE BEHAVIORS OR EVENTS.
--- NOTE | 2021-09-03 04:23 | NUR ---
SHIFT SUMMARY: NO SIGNIFICANT EVENTS ON NOC. PATIENT IS CALM AND COOPERATIVE. DAY SHIFT REPORTED PATIENT SLEPT MAJORITY OF THE DAY. SHE WOKE UP AROUND 2100 AND REQUESTED FOOD, SNACKS PROVIDED. PATIENT HAS BEEN SLEEPING ON AND OFF THROUGH THE NIGHT. SHE WANDERS IN THE HALLS AND REQUESTS FOOD FREQUENTLY.
--- NOTE | 2021-09-03 14:56 | NUR ---
AOX1-2, INDEPENDENT, PLEASANT, COOPERATIVE WITH MEDICATIONS, AND CAN MAKE NEEDS KNOWN. PATIENT CONSISTANTLY STATES THAT SHE IS HUNGRY, EVEN AFTER EATING 100% OF MEALS, SNACKS AND SANDWICHES GIVEN. NO ADVERSE BEHAVIORS OR EVENTS. NO SIGNS OF PAIN, ANXIETY, OR AGGRESSION NOTED. NO ACUTE CHANGES. CALL LIGHT IN REACH, PATIENT DOESN'T USE IT.
--- NOTE | 2021-09-04 04:28 | NUR ---
SHIFT SUMMARY - NO ACUTE CHANGES THROUGHOUT THIS SHIFT. PT DIDN'T SLEEP WELL TONIGHT, APPX 1-2 HOURS OF SLEEP. PT HAS BEEN UP FREQUENTLY REQUESTING FOOD. WEIGHT TAKEN THIS AM - PT HAS GAINED 21 LBS SINCE ADMIT. REPORTED THIS INFORMATION TO PT, AND EDUCATED PT ON DECREASING HER PO INTAKE. PO WATER PROVIDED. PT HAS OTHERWISE BEEN APPROPRIATE IN HER BEHAVIOR. PT AMBULATES INDEPENDENTLY. PT IS AWAITING GUARDIANSHIP, PER CM NOTES.
--- NOTE | 2021-09-04 14:33 | NUR ---
AOX2-3, INDEPENDENT, CAN MAKE NEEDS KNOWN, AND COOPERATING WITH MEDICATION. PATIENT HAS BEEN SLEEPING MOST OF THE DAY, WAKING UP MOSTLY TO EAT MEALS. NO ADVERSE BEHAVIORS OR EVENTS. NO SIGNS OF PAIN, ANXIETY, OR AGGRESSION. NO ACUTE CHANGES. CALL LIGHT IN REACH, PATIENT DOESN'T USE IT.
--- NOTE | 2021-09-05 14:59 | NUR ---
AOX2-3, CAN MAKE NEEDS KNOWN. PATIENT IS INDEPENDENT AND COOPERATING WIHT MEDICATION. PATIENT SLEEPS MOST OF THE DAY, WAKING UP FOR MEALS AND TO TELL STAFF THAT SHE IS HUNGRY. NO ADVERSE BEHAVIORS OR EVENTS. NO SIGNS OF PAIN, ANXIETY, OR AGGRESSION. NO ACUTE CHANGES. CALL LIGHT IN REACH, PATIENT DOESN'T USE IT.
--- NOTE | 2021-09-06 03:48 | NUR ---
SHIFT SUMMARY NO ACUTE CHANGES TO PT CONDITION. PT SAT IN HALLWAY MUCH OF THE EVENING. PT CONTINUES TO STATE THAT SHE IS EXTREMELY HUNGRY AND ASK FOR FOOD EXCESSIVELY. PT GIVEN A FEW SNACKS AND THEN TOLD THAT WOULD BE IT UNTIL BREAKFAST. PT SLEPT LIGHTLY TONIGHT. WILL CONTINUE TO MONITOR.
--- NOTE | 2021-09-06 15:39 | NUR ---
CAN MAKE NEED KNOWN. PATIENT IS INDEPENDENT AND COOPERATING WITH MEDICATION. PT SLEEPS MOST OF THE DAY, MOSTLY WAKING UP FOR MEALS. PT IS OBNOXIOUS ABOUT STATING BEING HUNGRY, INCLUDING BELCHING LOUDLY AT STAFF, INTERUPTING CONVERSATIONS, AND REPORTS. PT IS GIVEN SERVERAL SNACKS AND SANDWICHES THROUGHOUT THE SHIFT. NO ACUTE CHANGES. CALL LIGHT IN REACH, PATIENT DOESN'T USE IT.
--- NOTE | 2021-09-07 04:31 | NUR ---
SHIFT SUMMARY: PATIENT A/OX3 DISORIENTED TO TIME. PATIENT REMAINS ADLIB- STEADY WHEN AMBULATING AND INDEPENDENT WITH ADL'S. PATIENT REPORTS BACK ACHE THIS MORNING MEDICATED WITH PRN ACETAMINOPHEN. PATIENT CONTINUES TO REQUEST FOOD VERY FREQUENTLY, REPORTS NOT FEELING FULL AFTER EATING AND BEING CONSTANTLY HUNGRY.
--- NOTE | 2021-09-07 16:05 | NUR ---
DAYSHIFT SUMMARY Pt sleeping all day, awake for meals, asks for snacks often. Soft pressures, scheduled midodrine administred. No behaviors observed. No other concerns at this time, awaiting placement. Vitals stable.
--- NOTE | 2021-09-08 06:04 | NUR ---
SHIFT SUMMARY: NO ACUTE CHANGES THROUGOUT THE NIGHT. PATIENT REMAINS ADLIB, INDEPENDENT WITH ADL'S. CONTINUES TO REQUEST FOR FOOD FREQUENTLY. PATIENT WAS ABLE TO SLEEP MAJORITY OF THE NIGHT. CONTINUES TO CALL APPROPRIATELY.
--- NOTE | 2021-09-08 16:15 | NUR ---
DAYSHIFT SUMMARY Pt sleeping comfortably in bed all day, awake for meals. Only ate 50% of breakfast & lunch. Pressures soft, scheduled midodrine given. No other changes to patient status, awaiting placement. Vitals stable.
--- NOTE | 2021-09-09 03:38 | NUR ---
SHIFT SUMMARY: NO ACUTE CHANGES THROUGHOUT THE NIGHT. PATIENT REMAINS ADLIB, AND INDEPENDENT WITH ADL'S. HAD SOME RESTLESSNESS TONIGHT, CONTINUES FIXATION ON FOOD AND COFFEE- PATIENT DOES NOT APPEAR TO BE SATISFIED AFTER EATING.
--- NOTE | 2021-09-09 17:22 | NUR ---
PT IS ALERT ORIENTED TO SELF AND SURROUNDINGS. THE PT HAS BEEN UP IND IN HER ROOM AND OUT IN THE FELIX. THE PT APPEARS TO BE BREATHING EASILY ON RA. NO C/O OF PAIN OR NAUSEA AT THIS TIME. PT IS UP SITTING OUT IN THE FELIX AT THIS TIME. WILL CONTINUE TO MONITOR FOR CHANGES
--- NOTE | 2021-09-10 05:11 | NUR ---
SHIFT SUMMARY NO ACUTE CHANGES. PT SLEPT WELL MOST OF THE NIGHT. REPORTS BEING HUNGRY WHEN SHE IS AWAKE, STATING THAT SHE IS "ALWAYS HUNGRY". REQUESTS FREQUENT SNACKS. DENIED PAIN. PLEASANT AND COOPERATIVE. CONTINUES TO AWAIT GUARDIANSHIP AND PLACEMENT.
--- NOTE | 2021-09-10 17:07 | NUR ---
SHIFT SUMMARY PATIENT A&O TO SELF. PATIENT SLEPT TILL AFTERNOON. ONCE AWAKE PATIENT FIXATED ON BEING HUNGRY EVEN IMMEDIATELY AFTER EATING A MEAL OR SNACK. SOFT BP, MEDICATED PER MAR. OTHER VITAL SIGNS STABLE. NO SIGNIFICANT EVENTS. AWAITING GUARDIANSHIP AND PLACEMENT. WILL CONTINUE TO MONITOR.
--- NOTE | 2021-09-11 05:39 | NUR ---
SHIFT SUMMARY PATIENT ALERT AND ORIENTED X3. HAD NO COMPLAINTS OF PAIN OR SHORTNESS OF BREATH. NO ACUTE ISSUES NOTED OVERNIGHT. CALL LIGHT WITHIN REACH. REPORT GIVEN TO ONCOMING RN.
--- NOTE | 2021-09-11 16:47 | NUR ---
SHIFT SUMMARY- PT COOPERATIVE WITH MEDICATIONS AND CARE. PT INDEPENDANT IN ROOM. VSS. A&O X2. NO C/O OF PAIN DURING SHIFT. PT WITH CALL LIGHT WITHIN REACH.
--- NOTE | 2021-09-12 04:29 | NUR ---
SHIFT SUMMARY NO ACUTE CHANGES OVERNIGHT. PT AOX2. APPROPRIATE AND COOPERATIVE CARE. PT REPORTS SOME NECK AND SHOULDER PAIN BEFORE SLEEP AND REQUESTED FOR TYLENOL. PAIN MANAGED WITH 1 DOSE OF 650MG TYLENOL. PT SLEPT GOOD OVERNIGHT. INDEPENDENT IN ROOM. FREQUENT WALKS IN HALLWAY. CALL LIGHT WITHIN REACH. WILL CONTINUE TO MONITOR AND WILL PROVIDE REPORT TO ONCOMING NURSE.
--- NOTE | 2021-09-12 18:44 | NUR ---
SHIFT SUMMARY- PT PLEASANT THROUGHOUT SHIFT. PT STATES SHE IS ALWAYS "HUNGRY" PT APPETITE EXCELLENT. PT INDEPENDANT IN ROOM. PT SOCIAL THROUGHOUT MOST OF SHIFT. PT SLEPT DURING SHIFT FOR ABOUT 4 HRS. PT WITH CALL LIGHT WITHIN REACH.
--- NOTE | 2021-09-13 01:32 | NUR ---
SUMMARY NO ACUTE CHANGES. PT HAS BEEN CONSTANTLY ASKING FOR FOOD STATING "I AM HUNGRY" SINCE THE BEGINNING OF THE SHIFT UNTIL 0100. PT STARTING TO GET AGITATED AND UPSET. PRN SEROQUEL WAS GIVEN TO HELP HER SLEEP. TUCKED HER IN BED WITH WARM BLANKET. PT STAYED IN BED SINCE THEN. VOIDING ADEQUATELY. PASSING FLATUS. CALL LIGHT WITHIN REACH. WILL CONTINUE TO MONITOR AND WILL PROVIDE REPORT TO ONCOMING NURSE.
--- NOTE | 2021-09-13 04:31 | NUR ---
ASSUMED CARE OF PATIENT AT 0230. PT REQUESTING FOOD THROUGHOUT THE NIGHT. PRN MEDICATIONS GIVEN PRIOR TO REPORT.
--- NOTE | 2021-09-13 16:23 | NUR ---
DAY SHIFT SUMMARY 56 YR OLD FEMALE PT BEEN HERE SINCE 07/18/21. PT ON RA, NO IV, REGULAR DIET, WAITING GUARDIANSHIP AND PLACEMENT. INDEPENDENT IN ROOM AND FELIX. ABLE TO MAKE NEEDS KNOWN. NO ACUTE CHANGES THIS SHIFT.
--- NOTE | 2021-09-14 02:57 | NUR ---
SHIFT SUMMARY NO ACUTE CHANGES OVERNIGHT. PT HAS BEEN ASKING FOR FOOD LESS TONIGHT. SLEPT GOOD OVERNIGHT. MEDS WHOLE. VSS. INDEPENDENT. DENIES ANY COMPLAINT. COOPERATIVE WITH CARE. CALL LIGHT WITHIN REACH. WILL CONTINUE TO MONITOR AND WILL PROVIDE REPORT TO ONCOMING NURSE.
--- NOTE | 2021-09-14 16:23 | NUR ---
DAY SHIFT SUMMARY 56 YR OLD FEMALE PT AWAITING GUARDIANSHIP AND PLACEMENT. NO ACUTE CHANGES THIS SHIFT. A/O TO SELF AND SURROUNDINGS. REPEATEDLY STATES SHE IS HUNGRY EVEN AFTER JUST EATING. INDEPENDENT IN ROOM AND HALLWAY.
--- NOTE | 2021-09-15 03:30 | NUR ---
PT IS 56F WAITING FOR GUARDIANSHIP AND PLACEMENT. VS STABLE. PT IS CALM,PLEASANT,AND COOPERATIVE TO CARE. PT STATES THAT SHE IS HUNGRY EVEN AFTER JUST EATING. PT HAD PN 8/10 IN BACK, BL SHOULDERS, AND [place]. MEDICATED PER EMAR PN 3/10. PT IS INDEPENDENT IN ROOM AND HALLWAY. PT IS CURRENTLY RESTING WITH CALL LIGHT WITHIN REACH AND BED IN LOW POSITION.
--- NOTE | 2021-09-15 06:02 | NUR ---
STUDENT NOTES AND ASSESSMENT REVIEWED AND IN AGREEMENT.
--- NOTE | 2021-09-15 19:38 | NUR ---
MARY REMAINED PLEASANT WITH STAFF, AND FOLLOWED DIRECTIONS. FREQUENTLY HUNGRY AND ASKS FOR MORE FOOD. DOESNOT RECALL EATING DINNER. FORGETFUL. MOSTLY SLEEPING IN BED, WITH TV ON IN THE BACKGROUND. AT NIGHT, PT CAME OUT INTO THE HALLWAY TO SIT ON A COUCH WITH ANOTHER PT.
--- NOTE | 2021-09-16 03:14 | NUR ---
PT CALM AND COOPERATIVE WITH CARE. VS STABLE. PT CONSTANTLY HUNGRY EVEN AFTER EATING ONE AND A HALF SERVINGS OF DINNER. PT IS RESTING IN BED WITH TV ON IN BACKGROUND. CALL LIGHT WITHIN REACH WITH BED IN LOW POSITION.
--- NOTE | 2021-09-16 05:31 | NUR ---
NURSING STUDENTS NOTES AND DOCUMENTS REVIEWED AND IN AGREEMENT
--- NOTE | 2021-09-16 16:51 | NUR ---
SHIFT SUMMARY NO AGGRESSION NOTED. PT IS PLEASANT WITH STAFF AND FOLLOWS DIRECTIONS. SHE WILL LEAVE HER ROOM, ENTER HALLWAY TO SIT ON LOVESEAT AND REQUEST MORE FOOD AFTER EATING HER MEAL TRAY. HEALTHY APPETITE. INDEPENDENT IN ROOM WITH ADL'S. NO IV ACCESS. AWAITING PLACEMENT.
--- NOTE | 2021-09-17 05:17 | NUR ---
A/O X 2-3. NO AGRESSION NOTED. PT CALM AND PLEASANT WITH STAFF AND FOLLOWS COMMANDS. PT HANGS OUT IN HALLWAY OFTEN STATING SHE IS HUNGRY. PT IS INDEPENDENT IN ROOM AND HALLWAY WITH ADL'S. PT IS RESTING WITH TV ON WITH BED IN LOWEST POSITION WITH CALL LIGHT WITHIN REACH.
--- NOTE | 2021-09-17 05:26 | NUR ---
FLAMER SEALER NOTE AND DOCUMENTS REVIEWED AND IN AGREEMENT
--- NOTE | 2021-09-17 19:20 | NUR ---
SHIFT SUMMARY PT IN BED MOST OF DAY. SLEEPING ALL MORNING AND DIDN'T WAKE UP TO EAT BREAKFAST. REPORTED BEING HUNGRY DURING THE AFTERNOON BUT DIDN'T GET A SNACK AND ATE DINNER. IN HALLWAY ONLY A FEW TIMES TODAY.
--- NOTE | 2021-09-18 03:03 | NUR ---
SUMMARY: PT ORIENTED TO SELF AND SURROUNDINGS AND IS INDEPENDENT IN ROOM AND HALLWAY. SHE WAS PLEASANT AND COOPERATIVE W/CARE AND FOLLOWED INSTRUCTIONS. SNACKS PROVIDED PER PT REQUEST AND SHE WAS UP AD [place] TO TOILET. NO ACUTE CHANGES, VSS/AFEBRILE. PLACEMENT PENDING. WCTM AND REPORT TO DAY RN.
--- NOTE | 2021-09-18 18:04 | NUR ---
SHIFT SUMMARY NO ACUTE CHANGES DURING SHIFT. PT ALERT, ORIENTED TO SELF, PLACE. FOLLOWS COMMANDS. PT STILL AWAITING PLACEMENT. BP REMAINS LOW, CONTINUE MIDRODRINE. LAST BP 103/68, HR 75. PATIENT INDEPENDENT, AMBULATING AROUND HALLS. WILL CONTINUE TO MONITOR.
--- NOTE | 2021-09-19 02:47 | NUR ---
SUMMARY: PT A/O TO SELF AND PLACE, IS PLEASANT AND COOPERATIVE W/CARE AND SPECIFIES NEEDS APPROPRIATELY. SHE'S INDEPENDENT IN ROOM/HALLS AND SELF CARES FOR ADL'S. SNACKS PROVIDED PER REQUEST. PT DENIED PAIN/ALL OTHER COMPLAINTS. VSS/AFEBRILE, NO ACUTE CHANGES. PLACEMENT PENDING. WCTM AND REPORT TO DAY RN.
--- NOTE | 2021-09-19 13:53 | NUR ---
SHIFT SUMMARY NO ACUTE CHANGES TO PRESENT THIS SHIFT. PT SLEEPING AT START OF SHIFT. WOKE EASILY FOR CARE. AMBULATED INDEPENDENTLY OUT TO FELIX WHEN SHE WOKE AND SAT DOWN IN A CHAIR. PT BACK TO ON HER OWN. UP TO BTHRM INDEPENDENTLY NEEDED. EATS AND DRINKS WELL. NO C/O PAIN. CONTINUES TO WAIT FOR PLACEMENT. ABLE TO MAKE NEEDS KNOWN.
--- NOTE | 2021-09-19 14:12 | NUR ---
pt pleasant and engaging throughout shift. pt transfers independantly in room and hallways. pt independant of ADL's and meal time. pt request snacks between meals throughout the shift. pt has no complaints of pain throughout the shift. pt takes medications appropriately whole with water. pt has no new orders currently. pt waitig on placement at this time. pt relaxing in bed with call light within reach.
--- NOTE | 2021-09-20 04:02 | NUR ---
Patient calm and cooperative overnight. Up independently in the room. VOiding. Able to swallow her medications whole. Continue plan of care.
--- NOTE | 2021-09-20 19:19 | NUR ---
SHIFT SUMMARY NO ACUTE CHANGES. STILL AWAITING PLACEMENT
--- NOTE | 2021-09-21 05:03 | NUR ---
Patient calm and cooperative overnight. Frequently asking for snacks. Up independently in room and hallway. VOiding. Awaiting placement.
--- NOTE | 2021-09-21 17:32 | NUR ---
SHIFT SUMMARY NO ACUTE CHANGES. DISCHARGE STILL PENDING. PT HAD SOME SHOULDER PAIN. MEDICATED PER JUN.
--- NOTE | 2021-09-22 04:26 | NUR ---
Patient calm and cooperative overnight. Up independently in room and mccray. Voiding. Minor c/o left shoulder pain. Awaiting placement.
--- NOTE | 2021-09-22 09:08 | NUR ---
pt laying in bed wakes easily sat up for breakfast and to take her po meds, returned curled up on the bed, lungs are clear t/o, on r/a, resp even and unlabored, no cough noted, hrr, no edema noted, ppp+2, cap refill <3sec, vs stable, afebrile, btx4, abd flat soft nontender, voids without diff, skin c/w/d, maew, vane ,call light in reach.
--- NOTE | 2021-09-22 13:00 | NUR ---
allison came out in the mccray once and sat for a few minutes but returned to bed, watching tv, has been cooperative with taking her meds etc, states she feels sleepy. call light in reach.
--- NOTE | 2021-09-22 18:18 | NUR ---
pt continues to refuse food, and medications. she did answer this evening but when i asked her to take her medications she shook her head no and put her hands up. no further changes this shift. call light in reach.
--- NOTE | 2021-09-22 18:20 | NUR ---
pt has come out of her room a number of times today states she's hungry and returns to bed, uneventful day, no acute changes this shift, call light in reach.
--- NOTE | 2021-09-23 04:31 | NUR ---
SHIFT SUMMARY PT SLEPT MUCH OF THE NIGHT. PT REPORTS FEELING HUNGRY WHENEVER AWAKE. WANDERS OUT IN FELIX INTERMITTENTLY BUT SPENT MOST OF HER NIGHT IN HER ROOM. NO ACUTE CHANGES THIS EVENING. PT PLEASANT AND COOPERATIVE. CONTINUES TO AWAIT PLACEMENT.
--- NOTE | 2021-09-23 17:05 | NUR ---
PATIENT'S MOOD WAS COOPERATIVE ALL SHIFT. SHE HAD SOME PAIN THAT TYLENOL DIDN'T EFFECTIVELY RELIEVE. DR. VILLAGOMEZ APPROVED AN ORDER FOR ASPIRCREME. APPLIED TO NECK SHOULDER AND THIS HELPED TO RELIEVE THE PAIN THAT REMAINED. ALSO, SHE RECEIVED MILK OF MAGNESIA AFTER IT WAS REALIZED THAT SHE HAD NO BM SINCE September. THIS HAS ALREADY HAD POSITIVE RESULTS.
--- NOTE | 2021-09-24 04:36 | NUR ---
SHIFT SUMMARY PT SLEPT WELL THIS EVENING. SLEEPING ALMOST THE ENTIRE NIGHT. PLEASANT AND COOPERATIVE THROUGHOUT THE SHIFT. CONTINUES TO REQUEST FOOD WHENEVER AWAKE. NO ACUTE CHANGES. PT CONTINUES TO AWAIT PLACEMENT.
--- NOTE | 2021-09-24 11:46 | NUR ---
EVENT MGR CAME INTO UNIT TO LET STAFF KNOW THAT A FACILITY WOULD BE HERE THIS AFTERNOON TO ASSESS THIS PATIENT FOR PLACEMENT.
--- NOTE | 2021-09-24 17:24 | NUR ---
PATIENT WAS ASSESSED FOR PLACEMENT TODAY INTO A FACILTY. SHE HAD NO COMPLAINTS OR NEW PROBLEMS DEVELOPE TODAY.
--- NOTE | 2021-09-25 06:32 | NUR ---
RICE MILLING SUPERVISOR SUMMARY PT STILL AWAITING PLACEMENT. SHE IS HUNGRY THROUGHOUT THE SHIFT AND GIVEN MANY SNACKS. PT IS INDEPENDENT TO THE RESTROOM. SHE HAS SLEPT ON AND OFF THROUGHOUT THE SHIFT.
--- NOTE | 2021-09-25 17:56 | NUR ---
NO ACUTE CHANGES THIS SHIFT. PATIENT AWAITING PLACEMENT. MIDODRINE SCHEDULE FOR HYPOTENSION. PATIENT INDEPENDENT IN ROOM. NO NEW CONCERNS.
--- NOTE | 2021-09-26 04:31 | NUR ---
PRECISION STRUCTURAL METAL FITTER SUMMARY PT STILL AWAITING PLACEMENT. SHE CONTINUES TO REQUEST FOOD THROUGHOUT THE NIGHT, DESPITE BEING TOLD NO. BECOMES AGITATED WHEN SHE IS NOT GIVEN FOOD. SHE IS SLEEPING ON AND OFF THROUGHOUT THE SHIFT, SPENDING MOST OF THE TIME IN HER ROOM.
--- NOTE | 2021-09-26 17:25 | NUR ---
NO ACUTE CHANGES THIS SHIFT. PATIENT CONTINUES TO AWAIT PLACEMENT. VSS, ON RA. INDEPENDENT IN ROOM AND HALLWAY. PLEASANT AND COOPERATIVE WITH CARE TODAY.
--- NOTE | 2021-09-27 03:26 | NUR ---
SHIFT SUMMARY NO ACUTE CHANGES OVERNIGHT. PT SLEPT GOOD OVERNIGHT. FREQUENTLY WALKING IN HALLWAY, ASKING FOR FOOD. STATING "I AM HUNGRY". AMBULATES INDEPENDENTLY. CALL LIGHT WITHIN REACH. VSS. DENIES CHEST PAIN, SOB, DIZZINESS AND LIGHTHEADEDNESS. TOLEARTING PO, DENIES N/V. PLAN: WAITING FOR GUARDINSHIP AND PLACEMENT.
--- NOTE | 2021-09-27 18:34 | NUR ---
NO ACUTE CHANGES THIS SHIFT. B/P STABLE WITH MIDODRINE. CONTINUES TO AWAIT PLACEMENT
--- NOTE | 2021-09-28 07:31 | NUR ---
SHIFT SUMMARY NO ACUTE CHANGES OVERNIGHT. VSS. AMBULATES IND, WALKS IN THE HALLWAY. AOX3. HX DEMENTIA. STILL WAITING FOR GUARDIANSHIP AND PLACEMENT. CALL LIGHT WITHIN REACH. REPORT GIVEN TO DAY SHIFT NURSE.
--- NOTE | 2021-09-28 19:42 | NUR ---
SHIFT SUMMARY; NO ACUTE CHANGES IN CONDITION ARE NOTED. PATIENT IS PLEASANT AND COOPERATIVE WITH CARE.
--- NOTE | 2021-09-29 07:44 | NUR ---
PATIENT AWAKE UNTIL AFTER MIDNIGHT IN AND OUT OF ROOM, STILL REQUESTING FOOD AT EACH OPPORTUNITY. NO COMPLAINTS OF PAIN OR DISCOMFORT. NO CHANGES NOTED OVERNIGHT.
--- NOTE | 2021-09-29 18:44 | NUR ---
SHIFT SUMMARY PT REMAINED IN HER ROOM TODAY, APPEARED TO BE SLEEPING. RESP EVEN & UNLABORED. NO CLINICAL CHANGES NOTED. VSS. APPETITE REMAINS GOOD.
--- NOTE | 2021-09-30 05:44 | NUR ---
NO CHANGES OVERNIGHT OTHER THAN MARY WAS IN BED BY 8:00. WOKE FOR SNACK AROUND MIDNIGHT, THEN WENT BACK TO BED. NO COMPLAINTS OF PAIN OR DISCOMFORT NOTED.
--- NOTE | 2021-09-30 18:14 | NUR ---
SHIFT SUMMARY MARY SLEPT MOST OF THE MORNING. WAS AWAKE ALL AFTERNOON SITTING IN CHAIR IN HALLWAY OR IN HER ROOM WATCHING TV. ASKED FOR A FEW SNACKS TODAY. NO COMPLAINTS OF PAIN OR DISCOMFORT. APPETITE REMAINS GOOD. VSS.
--- NOTE | 2021-10-01 05:41 | NUR ---
SHIFT SUMMARY NOC: PT SLEPT ALL NIGHT IN BED. NO ADVERSE EVENTS.
--- NOTE | 2021-10-01 16:48 | NUR ---
SHIFT SUMMARY PT A&OX3-4 AND IN PLEASENT MOOD T/O SHIFT. PT REQUESTING FOOD FREQ T/O SHIFT, PT REDIRECTED TO DRINK WATER OR DISTRACTION TECHNIQUES UTILIZED. VSS. CALL LIGHT W/IN REACH. SLEEPING IN BED MOST OF SHIFT, AWAKE AND UP FOR MEALS. C/O CONSTANT HUNGER. SHOWER THIS SHIFT, HAIR BRUSHED AND BRAIDED.
--- NOTE | 2021-10-02 06:19 | NUR ---
RESEARCH AND DEVELOPMENT SCIENTIST SUMMARY: PT ASKS FOR FOOD OFTEN. NO ADVERSE EVENTS.
--- NOTE | 2021-10-02 17:10 | NUR ---
SHIFT SUMMARY PT A&O X3-4 AND IN PLEASENT MOOD T/O SHIFT. FREQUENT REQUESTS FOR SNACKS AND C/O HUNGER. ENJOYED SITTING OUT IN THE FELIX VISITING W/ OTHER PT'S AND STAFF. HAIR BRUSHED AND BRAIDED THIS SHIFT. VSS. CALL LIGHT W/IN REACH. AWAITING PLACEMENT/GAURDIANSHIP @ THIS TIME.
--- NOTE | 2021-10-03 06:38 | NUR ---
SHIFT SUMMAR NOC: PT REPORTS PAIN TO LEFT SHOULDER. PRN TYLENOL GIVEN. NO ADVERSE EVENTS.
--- NOTE | 2021-10-03 17:03 | NUR ---
SHIFT SUMMARY PT A/O X2 AND COOPERATIVE WITH CARE. CONTINUES TO AWAIT GUARDIANSHIP AND PLACEMENT. PT REQUESTS SNACKS OFTEN BUT SEEMS TO HAVE REQUESTED THEM LESS TODAY. VSS.
--- NOTE | 2021-10-04 04:34 | NUR ---
A&O TO SELF,PLACE. REORIENTED TO SITUATION/DATE. V/S WNL. REGULAR DIET. NO IV ACCESS. INDEPENDANT. VOIDS W/O DIFFICULTY. NO BM THIS SHIFT. WILL CONTINUE TO MONITOR.
--- NOTE | 2021-10-04 16:35 | NUR ---
SHIFT SUMMARY PT A/O X2 AND IND IN THE ROOM. PT IS PLEASANT AND COOPERATIVE WITH CARE. SHE IS AWAITING GUARDIANSHIP AND PLACEMENT. PT C/O SOME PAIN IN HER L SHOULDER AND TREATED PER EMR. NO OTHER COMPLAINTS THIS SHIFT. VSS.
--- NOTE | 2021-10-05 04:05 | NUR ---
A&O3. REORIENTED TO DATE. FORGETFUL AT TIMES. PARANOIA. HX OF DEMENTIA. V/S WNL. NO IV ACCESS. PRN TYLENOL GIVEN FOR L) SHOULDER PAIN PER EMAR. INDEPENDANT. VOIDS W/O DIFFICULTY. NO BM THIS SHIFT. WILL CONTINUE TO MONITOR.
--- NOTE | 2021-10-05 17:08 | NUR ---
SHIFT SUMMARY NO SIGNIFICANT CHANGES FOR MS ANDERSON TODAY. FLAT AFFECT, C/O FEELING HUNGRY SOON AFTER LUNCH TODAY. C/O L SHOULDER PAIN EASED A LITTLE WITH TYLENOL. 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 PLAN FOR DISCHARGE TO [facility] ON FRIDAY. PT MOSTLY RESTING IN HER ROOM TODAY, ALSO AMBULATORY IN THE HALLS. CALL LIGHT IN REACH
--- NOTE | 2021-10-06 05:18 | NUR ---
SHIFT SUMMARY NO ACUTE CHANGES THIS SHIFT. AOX3. FORGETFUL @TIMES. REPORTS PAIN IN NECK, BACK- MEDICATED 1X c TYLENOL, SLEPT WELL. REPORTED HEARTBURN, GAVE TUMS PER EMAR. REPORTED FEELING ANXIOUS @HS, MEDICATED c PRN SEROQUEL. AWAITING SAFE DC PLAN. WILL MONITOR.
--- NOTE | 2021-10-06 15:42 | NUR ---
RN NOTE MS ANDERSON IS ORIENTATED TO SELF, DATE, PLACE, NOT SITUATION. SHE HAS BEEN CO-OPERATIVE WITH HER CARE, C/O FEELING ANXIOUS EARLIER THAT SHE SAID SEROQUIL WAS EFFECTIVE IN REDUCING HER ANXIETY. C/O L SHOULDER PAIN THAT TYLENOL HELPS A SMALL AMOUNT. SHE SAID SHE HAS THIS PAIN CONSTANTLY. RESTING IN ROOM MOST OF THE DAY, UP IN THE HALLS BRIEFLY. DID REQUEST SOME SNACKS, BUT NOT EXCESSIVE. BED LOW, CALL LIGHT IN REACH.
--- NOTE | 2021-10-06 18:31 | NUR ---
SHIFT SUMMARY PLEASE SEE RN NOTE FROM 1548 TODAY. NO MAJOR CHANGES SINCE THAT TIME. BED LOW, CALL LIGHT IN REACH
--- NOTE | 2021-10-07 05:00 | NUR ---
SHIFT SUMMARY NO ACUTE CHANGES THIS SHIFT. AOX3-FORGETFUL. UNAWARE SITUATION. HX DEMENTIA. VSS. REPORTS PAIN IN L SHOULDER & NECK, MEDICATED 1X c TYLENOL & APPLIED ASPERCREME, PT ABLE TO REST SOUNDLY T/O NIGHT. DENIES N/V OR DYSPNEA. AWAITING PLACEMENT. CALL LIGHT IN REACH.
--- NOTE | 2021-10-07 18:17 | NUR ---
SHIFT SUMMARY MS ANDERSON HAS BEEN COOPERATIVE WITH HER CARE TODAY. WALKING IN THE HALLS FOR A WHILE, BUT MOSTLY RESTING IN HER ROOM. REQUESTED TYLENOL FOR L SHOULDER, BACK AND NECK PAIN WHICH SHE SAID BROUGHT HER PAIN DOWN TO 5/10. NOT ASKING FOR AN EXCESSIVE AMT OF SNACKS. SHE SAID SHE DOESN'T KNOW WHY SHE'S HERE IN THE HOSPITAL OR WHY SHE NEEDS A GUARDIAN. NO C/O ANXIETY THIS SHIFT. BED LOW, CALL LIGHT IN REACH.
--- NOTE | 2021-10-08 04:51 | NUR ---
SHIFT SUMMARY NO ACUTE CHANGES THIS SHIFT. AOX3. FORGETFUL & CONFUSED @TIMES. VSS. REPORTS ACHY PAIN IN L SHOULDER, APPLIED ASPERCREME & PT ABLE TO REST WELL T/O NIGHT. DENIES DYSPNEA, OR N/V. PLAN TO DC TO [facility] TODAY 10/08/21. CALL LIGHT IN REACH & PT ABLE TO MAKE NEEDS KNOWN.
--- NOTE | 2021-10-08 17:07 | NUR ---
SHIFT SUMMARY PT AMBULATING IN ROOM AND HALLWAY. PLEASANT & COOPERATIVE T/O SHIFT. BATHED TODAY. AWAITING PLACEMENT AT [facility]. POSSIBLE DC TOMORROW PER DC PLANNING. NO OTHER ACUTE CHANGES IN ASSESSMENT AT THIS TIME. HEAT THERAPY ADDED TO HELP WITH SHOULDER PAIN. VS REVIEWED. CALL LIGHT IN REACH.
--- NOTE | 2021-10-09 04:33 | NUR ---
SHIFT SUMMARY NO ACUTE CHANGES THIS SHIFT. AOX3-SELF, [facility], FOLLOWING DIRECTIONS. VSS. REPORTS PAIN IN L SHOULDER, APPLIED ASPERCREME & PT TAKING TYLENOL PER EMAR ORDERS. IND IN RM & HALLS. PLEASENT & COOPERATIVE. PLAN TO DC TO [facility] TODAY. WILL MONITOR.
--- NOTE | 2021-10-09 16:44 | NUR ---
SHIFT SUMMARY PT AxOx3-4 WITH INTERMITTENT FORGETFULNESS/CONFUSION. PT PLEASANT AND COOPERATIVE WITH CARE. PT INDEPENDENT IN THE ROOM AND ABLE TO MAKE NEEDS KNOWN. PT CURRENTLY AWAITING PLACEMENT AT [facility] FOR DISCHARGE. PT REPORTED PAIN x1 THIS SHIFT. MEDICATED PER EMAR WITH REPORTED RELIEF. PT CURRENTLY SITTING IN [place] IN CHAIR WITH CALL LIGHT IN REACH. PT DENIES ANY NEEDS AT THIS TIME.
--- NOTE | 2021-10-10 04:30 | NUR ---
SHIFT SUMMARY A/O, IND IN ROOM. C/O L. SHOULDER/NECK PAIN, MEDICATED PER EMAR. VSS, NO ACUTE CHANGES AT THIS TIME. BED IN LOWEST POSITION WITH CALL LIGHT IN REACH. WILL CONTINUE TO MONITOR AND REPORT TO ONCOMING RN.
--- NOTE | 2021-10-10 18:42 | NUR ---
NO ACUTE CHANGES THIS SHIFT. PATIENT CALM AND COOPERATIVE WITH CARE. ABLE TO TAKE CARE OF ALL HER OWN ADL'S. CONTINUES TO AWAIT PLACEMENT.
--- NOTE | 2021-10-11 04:42 | NUR ---
SHIFT SUMMARY A/OX4, IND IN ROOM. C/O L. SHOULDER/NECK PAIN, MEDICATED WITH TYLENOL. VSS, NO ACUTE CHANGES AT THIS TIME. BED IN LOWEST POSITION WITH CALL LIGHT IN REACH. WILL CONTINUE TO MONITOR AND REPORT TO ONCOMING RN.
[2021-10-11 11:47] LABS: Influenza A, PCR NEGATIVE (NEGATIVE); Influenza B, PCR NEGATIVE (NEGATIVE); Resp Syncytial Virus, PCR NEGATIVE (NEGATIVE); SARS-Cov-2 (COVID-19) PCR, MMC NEGATIVE (NEGATIVE)
[2021-10-11] MEDS ORDERED: MIDO5 PO (11:49)
[2021-10-11] MEDS ORDERED: BUPR150ER PO (11:50)
[2021-10-11] MEDS ORDERED: ALCIS59.15 ML TOP (11:51)
--- NOTE | 2021-10-11 14:10 | NUR ---
PATIENT D/C'D TO [facility], REPORT CALLED TO THE NURSE THERE. DC INSTRUCTIONS AND EDUCATION SENT WITH FRONT COUNTER CLERK. RX MEDICATIONS SENT TO [facility]. PATIENT DENIES ANY QUESTIONS OR CONCERNS. BELONGINGS WERE SENT WITH PATIENT.
== END 2021-10-11 13:59 | disposition home or self-care (01) ==
LOC: ER 12:30 → EOR 12:31 → ER 14:50 → MEDS 07-18 20:03
PROVIDERS: Family Medicine; Internal Medicine; Student in an Organized Health Care Education/Training Program; ADMIT Emergency Medicine
DX: F03.91 Unspecified dementia, unspecified severity, with behavioral disturbance (principal); G92.8 Other toxic encephalopathy; I95.9 Hypotension, unspecified; I25.10 Atherosclerotic heart disease of native coronary artery without angina pectoris; F17.210 Nicotine dependence, cigarettes, uncomplicated; E11.9 Type 2 diabetes mellitus without complications; E78.5 Hyperlipidemia, unspecified; K21.9 Gastro-esophageal reflux disease without esophagitis; J44.9 Chronic obstructive pulmonary disease, unspecified; I10 Essential (primary) hypertension; Z88.2 Allergy status to sulfonamides; Z20.822 Contact with and (suspected) exposure to COVID-19
CPT/HCPCS: 0241U; 36415; 80048; 80053; 82607; 82746; 82947; 84443; 85025; 85027; 86140; 86592; 92523; 93005; 93010; 96374; 99285-25; A9270; G0378; G0480; J1650; J2060

== ENCOUNTER → 2023-06-13 | Outpatient (CLI) | payer MEDICARE ==
[~2023-06-13] MED LIST changes: +ALCIS59.15 ML TOP; +BUPR150ER PO; +MIDO5 PO
[2023-06-13 10:06] LABS: Source, Urine Clean Catch
[2023-06-13 10:15] LABS: Appearance, Urine Hazy (Clear); Bilirubin, Urine Neg (Neg); Blood, Urine 1+ (Neg); Color, Urine Yellow (P-Yellow); Glucose Qualitative, Urine 3+ (Neg); Ketones, Urine Neg (Neg); Leukocyte Esterase, Urine 2+ (Neg); Nitrite, Urine Pos (Neg); Protein, Urine Neg (Neg); Specific Gravity, Urine 1.015 (1.003-1.022); Urobilinogen, Urine NORM (Normal)
[2023-06-13 10:31] LABS: Bacteria Many /hpf; Red Blood Cells, Urine 0-2 /hpf (0-2); Squamous Epithelial Cells Rare /hpf (Few); Yeast/Fungi Urine Rare /hpf
== END | disposition home or self-care (01) ==
LOC: LAB SHORT 09:25
PROVIDERS: Family Medicine
DX: N39.0 Urinary tract infection, site not specified (principal)
CPT/HCPCS: 81001; 87077; 87086; 87186